=== PATIENT | female | born 1950 | race Caucasian/White ===

== ENCOUNTER → 2016-08-13 | Outpatient (CLI) | payer MEDICARE ==
--- NOTE | 2016-08-14 07:05 | US ---
EXAMINATION TYPE: US kidneys/renal and bladder DATE OF EXAM: 08/13/2016 3:48 PM COMPARISON: CT 12/16/2015 CLINICAL HISTORY: 65-year-old female N28.1 Renal Cyst Left. Cyst seen on left kidney on CT. TECHNIQUE: Multiple sonographic images of the kidneys and bladder were obtained. FINDINGS: Right Kidney: 9.8 x 5.0 x 4.3 cm without hydronephrosis. There is a 9 x 6 x 7 mm partially exophytic hypoechoic lesion at the mid to lower pole. Left Kidney: 11.0 x 6.0 x 5.0 cm without hydronephrosis. There is a 6.9 x 5.3 x 6.1 cm simple cyst wi thin the upper pole. No gross abnormality of the bladder.Bilateral Jets seen: Yes IMPRESSION: 1. No hydronephrosis. 2. A 6.9 cm simple cyst in the left upper pole. 3. A tiny 9 mm hypoechoic lesion mid to lower pole right kidney. This is very small and not well makayla acterized. A complicated cyst or early small solid lesion are both possible. Recommend follow-up [facility] ultrasound in 6 months to reassess.
== END | disposition home or self-care (01) ==
LOC: RADUSWWP 15:32
PROVIDERS: ATTEND Family Medicine
DX: N28.1 Cyst of kidney, acquired (principal)
CPT/HCPCS: 76770

== ENCOUNTER 2016-10-04 23:19 | Inpatient (IN) | payer MEDICARE ==
[2016-10-04] MEDS ORDERED: IPRATROPIUM-ALBUTEROL 3 ML NEB INHALATION STA (23:35)
[2016-10-04] MEDS ORDERED: SODIUM CHLORIDE 0.9% 500 ML IV STA (23:35)
--- NOTE | 2016-10-04 23:41 | ED ---
General Adult HPI - General Chief complaint: Shortness of Breath Stated complaint: sob Time Seen by Provider: 10/04/16 23:29 Source: patient, RN notes reviewed, old records reviewed Mode of arrival: wheelchair Limitations: no limitations - History of Present Illness Initial comments: This is a 65-year-old female earlier today for evaluation. She presents for evaluation of shortness of breath and dyspnea. Getting a deep breath and chest tightness. Patient has history of smoking no history of asthma is mild history of heart disease. No history of heart failure. Possible episodic fever, 2 days worsening symptoms. Patient doesn't recent travel history to [facility] last month. She does have increased cough and congestion. No known sick contacts - Related Data Home Medications Medication Instructions Recorded Confirmed Levothyroxine Sodium [Synthroid] 175 mcg PO DAILY 08/15/14 10/05/16 Lisinopril-Hctz 20-25 mg 1 tab PO DAILY 08/15/14 10/05/16 [Zestoretic 20-25] Multivit-Min/FA/Lycopene/Lut 1 tab PO DAILY 08/15/14 10/05/16 [Centrum Silver Tablet] amLODIPine BESYLATE [Amlodipine 10 mg PO DAILY 08/15/14 10/05/16 Besylate] Albuterol Inhaler [Ventolin Hfa 1 puff INHALATION RT-Q6H PRN 12/16/15 10/05/16 Inhaler] Azelastine HCl [Astepro] 1 spray EA NOSTRIL BID PRN 12/16/15 10/05/16 Etodolac [Lodine] 400 mg PO DAILY 10/05/16 10/05/16 Gabapentin [Neurontin] 900 mg PO TID 10/05/16 10/05/16 Metoprolol Succinate (ER) [Toprol 50 mg PO DAILY 10/05/16 10/05/16 Xl] tiZANidine HCL [Zanaflex] 4 mg PO HS 10/05/16 10/05/16 Previous Rx's Medication Instructions Recorded Pantoprazole Sodium [Protonix] 40 mg PO DAILY #30 tablet. 12/18/15 Allergies Allergy/AdvReac Type Severity Reaction Status Date / Time adhesive Allergy Rash/Hives Verified 10/04/16 23:27 Penicillins Allergy Rash/Hives Verified 10/04/16 23:27 Tetracyclines Allergy Rash/Hives Verified 10/04/16 23:27 Review of Systems ROS Statement: Those systems with pertinent positive or pertinent negative responses have been documented in the HPI. ROS Other: All systems not noted in ROS Statement are negative. 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 Past Anesthesia/Blood Transfusion Reactions: No Reported Reaction Past Psychological History: No Psychological Hx Reported Smoking Status: Former smoker Past Alcohol Use History: None Reported Past Drug Use History: None Reported - Past Family History Father History Unknown: Yes Family Medical History: Cancer, Myocardial Infarction ([place]) Mother History Unknown: Yes Family Medical History: Hypertension General Exam Limitations: no limitations General appearance: alert, in no apparent distress Head exam: Present: atraumatic, normocephalic, normal inspection Eye exam: Present: normal appearance, PERRL, EOMI. Absent: scleral icterus, conjunctival injection, periorbital swelling ENT exam: Present: normal exam, mucous membranes moist Neck exam: Present: normal inspection. Absent: tenderness, meningismus, lymphadenopathy Respiratory exam: Present: normal lung sounds bilaterally. Absent: respiratory distress, wheezes, rales, rhonchi, stridor Cardiovascular Exam: Present: normal rhythm, tachycardia, normal heart sounds. Absent: systolic murmur, diastolic murmur, rubs, gallop, clicks GI/Abdominal exam: Present: soft, normal bowel sounds. Absent: distended, tenderness, guarding, rebound, rigid Extremities exam: Present: normal inspection, full ROM, normal capillary refill. Absent: tenderness, pedal edema, joint swelling, calf tenderness Back exam: Present: normal inspection Neurological exam: Present: alert, oriented X3, CN II-XII intact Psychiatric exam: Present: normal affect, normal mood Skin exam: Present: warm, dry, intact, normal color. Absent: rash Course Vital Signs 10/04/16 10/04/16 10/05/16 23:22 23:47 00:03 Temperature 99.1 F Pulse Rate 102 H 90 96 Respiratory 22 Rate Blood Pressure 152/81 O2 Sat by Pulse 96 Oximetry 10/05/16 10/05/16 02:41 02:54 Temperature 100.5 F H Pulse Rate 89 80 Respiratory 16 18 Rate Blood Pressure 154/79 O2 Sat by Pulse 94 L 100 Oximetry - Reevaluation(s) Reevaluation #1: Patient is feeling much better with symptomatic management EKG Findings - EKG Comments: EKG Findings:: EKG shows no/90, MA 140, QRS 80, QTC 4:30 Medical Decision Making - Medical Decision Making 58 female here with shortness of breath, chest tightness, CK chest shows maybe mass, but no PE. Chest x-ray is positive for pneumonia, patient will be admitted for IV antibiotics, pain control and further evaluation - Lab Data Result diagrams: 10/06/16 07:34 10/06/16 07:34 Lab Results 10/04/16 10/04/16 10/04/16 Range/Units 23:35 23:35 23:35 WBC 14.6 H (3.8-10.6) k/uL RBC 4.72 (3.80-5.40) m/uL Hgb 14.4 (11.4-16.0) gm/dL Hct 42.2 (34.0-46.0) % MCV 89.4 (80.0-100.0) fL MCH 30.5 (25.0-35.0) pg MCHC 34.1 (31.0-37.0) g/dL RDW 12.3 (11.5-15.5) % Plt Count 364 (150-450) k/uL Neutrophils % 79 % Lymphocytes % 13 % Monocytes % 6 % Eosinophils % 1 % Basophils % 0 % Neutrophils # 11.5 H (1.3-7.7) k/uL Lymphocytes # 1.8 (1.0-4.8) k/uL Monocytes # 0.9 (0-1.0) k/uL Eosinophils # 0.2 (0-0.7) k/uL Basophils # 0.1 (0-0.2) k/uL PT (9.0-12.0) sec INR (<1.1) APTT (22.0-30.0) sec D-Dimer (<0.60) mg/L FEU Sodium 136 L (137-145) mmol/L Potassium 3.5 (3.5-5.1) mmol/L Chloride 95 L (98-107) mmol/L Carbon Dioxide 26 (22-30) mmol/L Anion Gap 15 mmol/L BUN 18 H (7-17) mg/dL Creatinine 0.90 (0.52-1.04) mg/dL Est GFR (MDRD) Af Amer >60 (>60 ml/min/1.73 sqM) Est GFR (MDRD) Non-Af >60 (>60 ml/min/1.73 sqM) Glucose 145 H (74-99) mg/dL Calcium 9.7 (8.4-10.2) mg/dL Magnesium 1.9 (1.6-2.3) mg/dL Total Bilirubin 0.9 (0.2-1.3) mg/dL AST 41 H (14-36) U/L ALT 58 H (9-52) U/L Alkaline Phosphatase 227 H (38-126) U/L Total Creatine Kinase 109 (30-135) U/L CK-MB (CK-2) 1.0 (0.0-2.4) ng/mL CK-MB (CK-2) Rel Index 0.9 Troponin I <0.012 (0.000-0.034) ng/mL NT-Pro-B Natriuret Pep pg/mL Total Protein 6.9 (6.3-8.2) g/dL Albumin 3.8 (3.5-5.0) g/dL 10/04/16 10/04/16 Range/Units 23:35 23:35 WBC (3.8-10.6) k/uL RBC (3.80-5.40) m/uL Hgb (11.4-16.0) gm/dL Hct (34.0-46.0) % MCV (80.0-100.0) fL MCH (25.0-35.0) pg MCHC (31.0-37.0) g/dL RDW (11.5-15.5) % Plt Count (150-450) k/uL Neutrophils % % Lymphocytes % % Monocytes % % Eosinophils % % Basophils % % Neutrophils # (1.3-7.7) k/uL Lymphocytes # (1.0-4.8) k/uL Monocytes # (0-1.0) k/uL Eosinophils # (0-0.7) k/uL Basophils # (0-0.2) k/uL PT 11.3 (9.0-12.0) sec INR 1.1 (<1.1) APTT 25.3 (22.0-30.0) sec D-Dimer 1.57 H (<0.60) mg/L FEU Sodium (137-145) mmol/L Potassium (3.5-5.1) mmol/L Chloride (98-107) mmol/L Carbon Dioxide (22-30) mmol/L Anion Gap mmol/L BUN (7-17) mg/dL Creatinine (0.52-1.04) mg/dL Est GFR (MDRD) Af Amer (>60 ml/min/1.73 sqM) Est GFR (MDRD) Non-Af (>60 ml/min/1.73 sqM) Glucose (74-99) mg/dL Calcium (8.4-10.2) mg/dL Magnesium (1.6-2.3) mg/dL Total Bilirubin (0.2-1.3) mg/dL AST (14-36) U/L ALT (9-52) U/L Alkaline Phosphatase (38-126) U/L Total Creatine Kinase (30-135) U/L CK-MB (CK-2) (0.0-2.4) ng/mL CK-MB (CK-2) Rel Index Troponin I (0.000-0.034) ng/mL NT-Pro-B Natriuret Pep 87 pg/mL Total Protein (6.3-8.2) g/dL Albumin (3.5-5.0) g/dL - Radiology Data Radiology results: report reviewed (Chest x-ray is positive for pneumonia, CT is negative for PE), image reviewed Disposition Clinical Impression: Community acquired pneumonia Disposition: ADMITTED IP TO THIS [facility] Condition: Fair
[2016-10-04] MEDS: SODIUM CHLORIDE 0.9% 1,000 ML IV STA (23:45)
[2016-10-04 23:59] LABS: Basophils # (A) 0.1 k/uL (0-0.2); Basophils % (A) 0 %; CH 30.1; CHCM 33.8; Eosinophils # (A) 0.2 k/uL (0-0.7); Eosinophils % (A) 1 %; HCT 42.2 % (34.0-46.0); HDW 2.34; HGB 14.4 gm/dL (11.4-16.0); Luc # (Auto) 0.15; Luc % (Auto) 1; Lymphocytes # (A) 1.8 k/uL (1.0-4.8); Lymphocytes % (A) 13 %; MCH 30.5 pg (25.0-35.0); MCHC 34.1 g/dL (31.0-37.0); MCV 89.4 fL (80.0-100.0); Mean Platelet Volume 7.4; Monocytes # (A) 0.9 k/uL (0-1.0); Monocytes % (A) 6 %; Neutrophils # (A) 11.5 k/uL (1.3-7.7); Neutrophils % (A) 79 %; RBC 4.72 m/uL (3.80-5.40); RDW 12.3 % (11.5-15.5); WBC 14.6 k/uL (3.8-10.6)
[2016-10-05 00:05] LABS: ALT 58 U/L (9-52); AST 41 U/L (14-36); Alkaline Phosphatase 227 U/L (38-126); Anion Gap 15 mmol/L; Blood Urea Nitrogen 18 mg/dL (7-17); Calcium 9.7 mg/dL (8.4-10.2); Carbon Dioxide 26 mmol/L (22-30); Chloride 95 mmol/L (98-107); Glucose 145 mg/dL (74-99); Magnesium 1.9 mg/dL (1.6-2.3); Non-African American GFR(MDRD) >60 (>60 ml/min/1.73 sqM); Potassium 3.5 mmol/L (3.5-5.1); Sodium 136 mmol/L (137-145); Total Bilirubin 0.9 mg/dL (0.2-1.3); Total Protein 6.9 g/dL (6.3-8.2)
[2016-10-05 00:09] LABS: Partial Thromboplastin Time 25.3 sec (22.0-30.0)
[2016-10-05 00:12] LABS: INR 1.1 (<1.1); Prothrombin Time 11.3 sec (9.0-12.0)
[2016-10-05 00:21] LABS: Creatine Kinase 109 U/L (30-135)
[2016-10-05 00:35] LABS: Troponin I <0.012 ng/mL (0.000-0.034)
--- NOTE | 2016-10-05 00:38 | XR ---
History: Reason: difficulty breathing Exam: XR CXR 2 VIEWS Comparison: 12/16/2015 FINDINGS: Patchy airspace opacity at the left base and lingula with silhouetting of the left heart border. Mild area of atelectasis suggested at the right base. No evidence of pleural effusion. Status post cholecystectomy. IMPRESSION: Patchy airspace opacity at the left base and lingula with silhouetting of the left heart border may represent pneumonia, clinically correlate and follow-up to resolution. Mild area of atelectasis suggested at the right base.
[2016-10-05] MEDS ORDERED: RX INFO: IV CONTRAST WAS GIVEN 1 EACH MISC MISCELLANE PRN (01:17)
[2016-10-05] MEDS ORDERED: LEVOFLOXACIN 750MG-D5W PMX 750 MG in DEXTROSE/WATER 1 150ML.BAG IVPB STA (01:19)
[2016-10-05] MEDS ORDERED: KETOROLAC 30 MG/ML 1 ML VIAL IVP STA (02:16)
[2016-10-05] MEDS ORDERED: ACETAMINOPHEN IV (For NPO) 1,000 MG in EMPTY BAG 1 BAG IVPB STA (02:16)
[2016-10-05] MEDS ORDERED: MORPHINE SULFATE 4 MG/ML SYRINGE IVP STA (02:16)
--- NOTE | 2016-10-05 02:25 | CT ---
EXAM: CT Angiography Chest With Intravenous Contrast CLINICAL HISTORY: Reason: Pain TECHNIQUE: Axial computed tomographic angiography images of the chest with intravenous contrast using pulmonary embolism protocol. CTDI is 11.5 mGy and DLP is 413.6 mGy-cm. This CT exam was performed using one or more of the following dose reduction techniques: automated exposure control, adjustment of the mA and/or kV according to patient size, and/or use of iterative reconstruction technique. MIP reconstructed images were created and reviewed. COMPARISON: CXR 10/05/16 and 12/16/15. FINDINGS: Pulmonary arteries: There is limited filling of the pulmonary arterial system which does preclude complete evaluation for partial embolus. I see no evidence for central pulmonary embolus or evidence for right heart strain. Aorta: No acute findings. No thoracic aortic aneurysm. Lungs: Rounded soft tissue attenuation mass within the left lower lobe likely involvement of the adjacent pleura. This measures 5.9 x 4.7 x 3.9 cm. Smaller rounded opacities are also noted within the right lower lobe within the superior segment measuring up to 13.5 cm. Diffuse centrilobular emphysema. Some ground-glass opacity seen within the lingula. Interstitial thickening is also seen within the left lower lobe, cannot exclude lymphangitic spread of tumor. Pleural space: Unremarkable. No significant effusion. No pneumothorax. Heart: Unremarkable. No cardiomegaly. No significant pericardial effusion. No evidence of RV dysfunction. Bones/joints: No acute fracture. No dislocation. Degenerative disc disease. Soft tissues: Unremarkable. Lymph nodes: Calcified lymph nodes identified indicating sequela from old granulomatous disease. Mildly prominent left hilar lymph nodes are seen measuring up to 1.6 cm. Abdomen: Cholecystectomy. Small hiatal hernia. Left renal 6.1 cm cyst. Diverticulosis. IMPRESSION: 1. Very limited evaluation of the pulmonary arterial system due to limited contrast bolus at time of exam. I see no evidence for central embolus or right heart strain. 2. Left lower lobe pulmonary mass which may involve the adjacent pleura and possible lymphangitic spread. Given small satellite nodules, concern is for malignancy.
[2016-10-05] MEDS ORDERED: PNEUMONIA PROTOCOL UTILIZED 1 EACH MISC PO PRN (02:41)
[2016-10-05] MEDS: MORPHINE SULFATE 4 MG/ML SYRINGE IVP PRN ×2 (05:23→09:58)
[2016-10-05] MEDS: SODIUM CHLORIDE 0.9% 1,000 ML IV STA (05:27)
[2016-10-05] MEDS: SODIUM CHLORIDE 0.9% 1,000 ML IV SCH ×2 (05:27→13:18)
[2016-10-05] MEDS: IPRATROPIUM-ALBUTEROL 3 ML NEB INHALATION SCH ×4 (07:17→20:48)
[2016-10-05] MEDS: ENOXAPARIN 40 MG/0.4 ML SYRINGE SQ SCH (07:50)
[2016-10-05] MEDS ORDERED: ONDANSETRON 4 MG/2 ML VIAL IVP PRN (12:17)
[2016-10-05] MEDS: HYDROcodone/APAP 5-325MG 1 EACH TAB PO PRN ×2 (12:32→17:45)
[2016-10-05] MEDS: KETOROLAC 30 MG/ML 1 ML VIAL IVP PRN ×2 (12:33→17:44)
[2016-10-05] MEDS: HYDROmorphone 1 MG/ML 1 ML SYRINGE IVP PRN ×4 (12:34→20:45)
[2016-10-05] MEDS: PANTOPRAZOLE 40 MG/10 ML VIAL IVP SCH ×2 (13:18→20:47)
[2016-10-05] MEDS ORDERED: ALPRAZolam 0.25 MG TAB PO PRN (17:02)
[2016-10-05] MEDS ORDERED: TEMAZEPAM 15 MG CAP PO PRN (17:02)
[2016-10-05] MEDS ORDERED: AZELASTINE 137MCG/SPRAY EA NOSTRIL PRN (17:03)
[2016-10-05] MEDS: GABAPENTIN 300 MG CAP PO SCH (20:47)
[2016-10-05] MEDS: tiZANidine 4 MG TAB PO SCH (20:47)
[2016-10-05] MEDS: SYMBICORT 160-4.5 MCG INHALER INHALATION SCH (20:48)
[2016-10-06] MEDS ORDERED: HYDROcodone/APAP 5-325MG 1 EACH TAB ONE (02:00)
[2016-10-06] MEDS ORDERED: HYDROmorphone 1 MG/ML 1 ML SYRINGE ONE (02:00)
[2016-10-06] MEDS ORDERED: KETOROLAC 30 MG/ML 1 ML VIAL ONE (02:00)
[2016-10-06] MEDS ORDERED: LEVOFLOXACIN 750MG-D5W PMX 750 MG in DEXTROSE/WATER 1 150ML.BAG IVPB SCH (02:42)
[2016-10-06] MEDS: LEVOTHYROXINE 88 MCG TAB PO SCH (05:52)
[2016-10-06] MEDS: HYDROmorphone 1 MG/ML 1 ML SYRINGE IVP PRN ×2 (05:57→09:04)
[2016-10-06] MEDS: SODIUM CHLORIDE 0.9% 1,000 ML IV SCH (05:58)
[2016-10-06] MEDS: HYDROcodone/APAP 5-325MG 1 EACH TAB PO PRN (07:35)
[2016-10-06] MEDS: KETOROLAC 30 MG/ML 1 ML VIAL IVP PRN (07:37)
[2016-10-06 08:02] LABS: Basophils % (A) 0 %; CH 29.6; CHCM 32.6; Eosinophils # (A) 0.2 k/uL (0-0.7); Eosinophils % (A) 2 %; HCT 36.6 % (34.0-46.0); HDW 2.31; HGB 12.4 gm/dL (11.4-16.0); Luc # (Auto) 0.08; Luc % (Auto) 1; Lymphocytes # (A) 1.5 k/uL (1.0-4.8); Lymphocytes % (A) 15 %; MCH 30.8 pg (25.0-35.0); MCHC 33.8 g/dL (31.0-37.0); MCV 91.1 fL (80.0-100.0); Mean Platelet Volume 7.2; Monocytes # (A) 0.6 k/uL (0-1.0); Monocytes % (A) 6 %; Neutrophils # (A) 7.9 k/uL (1.3-7.7); Neutrophils % (A) 77 %; RBC 4.02 m/uL (3.80-5.40); RDW 12.3 % (11.5-15.5); WBC 10.3 k/uL (3.8-10.6); WBC (Perox) 10.56
[2016-10-06 08:13] LABS: ALT 46 U/L (9-52); AST 36 U/L (14-36); Alkaline Phosphatase 162 U/L (38-126); Anion Gap 10 mmol/L; Blood Urea Nitrogen 8 mg/dL (7-17); Calcium 8.9 mg/dL (8.4-10.2); Carbon Dioxide 28 mmol/L (22-30); Chloride 101 mmol/L (98-107); Glucose 82 mg/dL (74-99); Non-African American GFR(MDRD) >60 (>60 ml/min/1.73 sqM); Potassium 3.7 mmol/L (3.5-5.1); Sodium 139 mmol/L (137-145); Total Bilirubin 0.6 mg/dL (0.2-1.3)
[2016-10-06] MEDS: SYMBICORT 160-4.5 MCG INHALER INHALATION SCH ×2 (08:56→19:48)
[2016-10-06] MEDS: IPRATROPIUM-ALBUTEROL 3 ML NEB INHALATION SCH ×4 (08:56→19:49)
[2016-10-06] MEDS: PANTOPRAZOLE 40 MG/10 ML VIAL IVP SCH (09:18)
[2016-10-06] MEDS: ENOXAPARIN 40 MG/0.4 ML SYRINGE SQ SCH (09:19)
[2016-10-06] MEDS: GABAPENTIN 300 MG CAP PO SCH ×3 (09:19→21:14)
[2016-10-06] MEDS: METOPROLOL SUCCINATE (ER) 50 MG TAB.ER.24H PO SCH (09:19)
[2016-10-06] MEDS: amLODIPine 10 MG TAB PO SCH (09:19)
[2016-10-06] MEDS: LISINOPRIL-HCTZ 20-25 MG 1 EACH TAB PO SCH (09:19)
--- NOTE | 2016-10-06 09:25 | XR ---
EXAMINATION TYPE: XR chest 2V DATE OF EXAM: 10/06/2016 COMPARISON: 10/05/2016 HISTORY: 66-year-old female follow-up pneumonia TECHNIQUE: Frontal and lateral views FINDINGS: The cardiomediastinal silhouette, aorta, and pulmonary vasculature are within normal limits. Left low er lobe consolidation persists having improved minimally from 10/05/2016. No pleural effusion. IMPRESSION: Stable to minimally improved left lower lobe pneumonia.
[2016-10-06 12:08] VITALS: BMI 30.7
[2016-10-06] MEDS: PANTOPRAZOLE 40 MG TABLET PO SCH (15:33)
[2016-10-06] MEDS: MULTIVITAMINS, THERA 1 EACH TAB PO SCH (15:33)
--- NOTE | 2016-10-06 18:38 | HP ---
CHIEF COMPLAINT: Shortness of breath and cough. HISTORY OF PRESENT ILLNESS: This 65 year old woman with a past medical history of multiple medical problems including history of hypertension, hypothyroidism, history of Ava's disease, history of cholecystectomy being followed by Dr. Valdo Estrada in the outpatient setting was not feeling well over the past several days. The patient presented with shortness of breath and cough. The patient also had left sided chest pain. The patient came to [facility] and was found to have evidence of left sided pneumonia, mass lesion suspected. The patient was admitted for further evaluation and treatment. Of note, the patient did have CT scan screened CT about three years ago without any abnormality. There is no history of fever, rigors or chills. No history of headache, loss of consciousness or seizures. PAST MEDICAL HISTORY: History of hypertension, hypothyroidism, thyroid nodule, Ava's disease. Medications prior to admission include home medications are: 2. Amlodipine 10 mg daily. 3. Protonix 40 mg daily. 4. Multivitamins one daily. 5. Toprol XL 50 mg daily. 6. Zestoretic one tablet po daily. 7. Synthroid 175 mcg po daily. 8. Neurontin 900 mg po t.i.d. 9. Lodine 400 mg po daily. 11. Ventolin one puff q6h prn. ALLERGIES: ADHESIVES, PENICILLIN AND TETRACYCLINE. FAMILY HISTORY: History of hypertension. SOCIAL HISTORY: Previous history of smoking. No history of alcohol intake. REVIEW OF SYSTEMS: ENT: No diminished vision, no diminished hearing. CARDIOVASCULAR SYSTEM: No angina or palpitations. RESPIRATORY: No cough. GI: As mentioned earlier. : No dysuria or hematuria. ALLERGY/IMMUNOLOGY: No asthma or hayfever. MUSCULOSKELETAL: as mentioned earlier. HEMATOLOGY/ONCOLOGY: No history of anemia. ENDOCRINE: As mentioned earlier. CONSTITUTIONAL: As mentioned earlier. DERMATOLOGY: Negative. RHEUMATOLOGY: Negative. PSYCHIATRIC: As mentioned earlier. PHYSICAL EXAMINATION: Alert and oriented times three. Pulse 92. Blood pressure 136/77. Respirations 17. Temperature 98.6, pulse ox 97% on room air. HEENT: Conjunctivae normal. Oral mucosa moist. NECK: No jugular venous distention. No carotid bruit. No lymph node enlargement. CARDIOVASCULAR: S1, S2 muffled. RESPIRATORY: Breath sounds diminished at the bases. A few scattered rhonchi and crackles. ABDOMEN: Soft, nontender. LEGS: No edema, no swelling. NERVOUS SYSTEM: Higher functions as mentioned earlier. Moves all four limbs. No focal deficits. LYMPHATICS: No lymph nodes palpable in the neck, axillae or groin. SKIN: No ulcer, rash or bleeding. Labs at this time shows WBC 14.6, BUN 1.57. Other labs are noted. ASSESSMENT: 1. Acute left lower lobe pneumonia with sepsis and acute hypoxic respiratory failure, present on admission, possibly gram negative. 2. Rule out mass lesion and malignancy. 3. Increased WBC. 4. Increased D. dimer. 5. Hypernatremia. 6. Increased AST/ALT. 7. History of hypertension. 8. History of breast surgery. 9. Degenerative joint disease. 10. Remote history of nicotine dependence. RECOMMENDATIONS AND DISCUSSION: In this 65 year old woman who presented with multiple medical problems, we will continue the current medications, continue symptomatic treatment, we will monitor the patient closely, intensive pain management. Broad spectrum IV antibiotics. I would also recommend bronchodilators also. The overall prognosis is guarded because of multiple complex medical issues. Further recommendations to follow. See orders for further details. Dr. Chance will be consulted for further evaluation including possible bronchoscopy. BERONICA
[2016-10-06] MEDS: tiZANidine 4 MG TAB PO SCH (21:15)
[2016-10-07] MEDS: LEVOTHYROXINE 88 MCG TAB PO SCH (06:00)
[2016-10-07] MEDS: SODIUM CHLORIDE 0.9% 1,000 ML IV SCH (06:27)
[2016-10-07 07:42] LABS: Basophils % (A) 0 %; CH 30.1; CHCM 33.7; Eosinophils # (A) 0.2 k/uL (0-0.7); Eosinophils % (A) 1 %; HDW 2.22; HGB 12.2 gm/dL (11.4-16.0); Luc # (Auto) 0.12; Luc % (Auto) 1; Lymphocytes # (A) 2.2 k/uL (1.0-4.8); Lymphocytes % (A) 17 %; MCH 31.2 pg (25.0-35.0); MCHC 34.8 g/dL (31.0-37.0); MCV 89.6 fL (80.0-100.0); Mean Platelet Volume 7.4; Monocytes # (A) 0.7 k/uL (0-1.0); Monocytes % (A) 5 %; Neutrophils # (A) 9.7 k/uL (1.3-7.7); Neutrophils % (A) 76 %; RBC 3.91 m/uL (3.80-5.40); RDW 12.6 % (11.5-15.5); WBC 12.9 k/uL (3.8-10.6); WBC (Perox) 13.14
[2016-10-07] MEDS: SYMBICORT 160-4.5 MCG INHALER INHALATION SCH ×2 (08:04→19:16)
[2016-10-07] MEDS: IPRATROPIUM-ALBUTEROL 3 ML NEB INHALATION SCH ×4 (08:04→19:16)
[2016-10-07 08:05] LABS: ALT 52 U/L (9-52); AST 29 U/L (14-36); Alkaline Phosphatase 157 U/L (38-126); Anion Gap 12 mmol/L; Blood Urea Nitrogen 6 mg/dL (7-17); Calcium 8.6 mg/dL (8.4-10.2); Carbon Dioxide 25 mmol/L (22-30); Chloride 99 mmol/L (98-107); Glucose 121 mg/dL (74-99); Non-African American GFR(MDRD) >60 (>60 ml/min/1.73 sqM); Potassium 3.5 mmol/L (3.5-5.1); Sodium 136 mmol/L (137-145); Total Bilirubin 0.5 mg/dL (0.2-1.3); Total Protein 5.5 g/dL (6.3-8.2)
[2016-10-07] MEDS: LEVOFLOXACIN 750 MG TAB PO SCH (08:06)
[2016-10-07] MEDS: PANTOPRAZOLE 40 MG TABLET PO SCH ×2 (08:07→17:06)
[2016-10-07] MEDS: METOPROLOL SUCCINATE (ER) 50 MG TAB.ER.24H PO SCH (08:07)
[2016-10-07] MEDS: ENOXAPARIN 40 MG/0.4 ML SYRINGE SQ SCH (08:07)
[2016-10-07] MEDS: amLODIPine 10 MG TAB PO SCH (08:07)
[2016-10-07] MEDS: GABAPENTIN 300 MG CAP PO SCH ×3 (08:07→20:42)
[2016-10-07] MEDS: LISINOPRIL-HCTZ 20-25 MG 1 EACH TAB PO SCH (08:07)
--- NOTE | 2016-10-07 08:37 | CONS ---
A 65-year-old female who presented to the emergency department with complaints of shortness of breath and was told that she had pneumonia in the left lower lobe. The patient complained of shortness of breath. She had been getting short of breath for a couple of days prior to admission. She also had pleuritic type chest pain in the left chest. It was worse on deep breathing. The patient was coughing, producing some phlegm, not a lot. Was feeling better today when I saw her in the room. She had a couple of chest x-rays, which showed infiltrates in the left lower lobe. CAT scan was done to rule out PE. There was no evidence of central pulmonary embolism. The CT angiogram was limited by motion artifact, when in fact the lesion in the left lower lobe may in fact be a mass. She may need a bronchoscopy down the road. She is feeling better as I mentioned. She was a smoker in the past. Does not smoke currently. Her home medications include Synthroid, Zestoretic, Centrum vitamin, amlodipine , albuterol inhaler, Astepro, Ceftin and Protonix. Allergies include ADHESIVES, PENICILLIN and TETRACYCLINES. Medical history includes hypertension, hypothyroidism, environmental allergies, Ava's disease, DJD, sinusitis and lupus. Surgical history includes among other things bilateral cataract surgery, cervical polyp removal, balloon Sinuplasty, bilateral blepharoplasty, right breast cyst removal, cholecystectomy, bilateral knee replacement and multiple thyroid nodule biopsies. Social history is positive for previous tobacco use. Denies any alcohol or illicit drug use. Family history is positive for cancer, myocardial infarction and hypertension. Occupational history is noncontributory. REVIEW OF SYSTEMS: CONSTITUTIONAL: Negative. NEUROLOGIC: Negative. HEENT: Negative. CARDIOVASCULAR: Negative. PULMONARY: Chest congestion, cough, shortness of breath, pleuritic chest pain left chest. GI/: Negative. RHEUMATOLOGIC/IMMUNOLOGIC: Negative. ENDOCRINOLOGIC: Negative. Current vital signs include a temperature 98.5, heart rate 82, respiratory rate 18, blood pressure 145/66, mean 92, room air saturation 98%. Appears in no acute distress. HEENT examination is grossly unremarkable. Mucous membranes are moist. No oral lesions. NECK: Supple. Full range of motion. No adenopathy or thyromegaly. Neck veins are flat. Cardiovascular examination reveals regular rhythm and rate. S1 and S2 normal. No S3, S4 or murmur. Lungs reveal some bibasilar crackles. There is a few scattered rhonchi. No wheezes. ABDOMEN: Soft. Bowel sounds are heard. Extremities are intact. No cyanosis, clubbing or edema. SKIN: Without rash. Chest x-ray showed left lower lobe infiltrate. CT scan showed no evidence of PE , but possible mass left lower lobe. Labs are reviewed. CBC is normal. PT, INR, PTT normal. D-dimer was elevated at 1.57. Electrolytes look good. BUN and creatinine were normal. The rest of the labs look good. Microbiology is current pending or negative. Medications are reviewed. ASSESSMENT: 1. Pneumonia, left lower lobe. 2. Possible mass left lower lobe. 3. Possible underlying chronic obstructive pulmonary disease from previous tobacco use. 4. History of hypertension. 5. Hypothyroidism. 6. Ava's thyroiditis. 7. Bilateral cataracts. 8. Multiple orthopedic procedures. PLAN: The patient can be treated as an inpatient here with antibiotics for a couple of days. The updrafts and the Symbicort are appropriate. We will see the patient as an outpatient. We will likely schedule her for bronchoscopy.Would not want to do anything given her acute infiltrates and pneumonic process. Additional recommendations and suggestions are forthcoming. Prognosis is guarded. MTDD
--- NOTE | 2016-10-07 11:15 | PN ---
DATE OF SERVICE: 10/06/2016 This 66-year-old woman was admitted with COPD acute exacerbation as well as significant pneumonia on the left side, also had suspected mass lesion. The patient is being closely monitored. The patient is on IV antibiotics. Still has shortness of breath and cough and sputum. Dr. Alberto is following the patient closely. The patient is on IV antibiotics. PAST MEDICAL HISTORY: Reviewed. REVIEW OF SYSTEMS: CARDIOVASCULAR: No angina. RESPIRATORY: As mentioned. GI: As mentioned. : No dysuria. NERVOUS SYSTEM: No numbness or weakness. Current medications are reviewed and include: 1. [place] 5 mg q.6 p.r.n. 2. Xanax 0.5 t.i.d. 3. Norvasc. 4. Astepro. 5. Symbicort 160/4.5, 2 puffs b.i.d. 6. Lovenox 7. Neurontin. 8. Zestoretic. 9. Dilaudid. 10. Toradol. 11. Levaquin. 12. Synthroid. 13. Toprol XL. 14. Zofran. 15. Restoril. 16. Zanaflex. Doses are reviewed. PHYSICAL EXAMINATION: The patient is alert and oriented x3. Pulse 89, blood pressure 130/62, respirations 18, temperature 98.8, pulse ox 94% on 2-L. HEENT: Conjunctivae normal. NECK: No jugular venous distention. CARDIOVASCULAR: S1, S2 muffled. RESPIRATORY: Breath sounds diminished at the bases. Bilateral scattered rhonchi and expiratory wheezing and crackles heard. Breath sounds diminished in the left lower chest. ABDOMEN: Soft, nontender. No mass palpable. LEGS: No edema, no swelling. NERVOUS SYSTEM: Higher function as mentioned. Moves all four limbs. No focal motor sensory deficits. LYMPHATICS: No lymphadenopathy in the neck, axillae or groin. SKIN: No rash, ulcers or bleeding. LABS: WBC 10, hemoglobin 12.4, sodium 139. Alk phos 162, albumin 3. ASSESSMENT: 1. Chronic obstructive pulmonary disease acute exacerbation with left lower lobe pneumonia possibly Gram-negative. 2. Rule out lung malignancy. 3. Hyponatremia. 4. Increased WBC. 5. History of hypertension. RECOMMENDATIONS AND DISCUSSION: This 66-year-old woman who presented with multiple complex medical issues, will monitor the patient closely. Continue with the current [id number], continue with IV antibiotics. Continue with the intensive bronchodilators. Consult Dr. Alberto. Closely monitor. Further recommendations to follow. Guarded prognosis. MTDD
[2016-10-07] MEDS: MULTIVITAMINS, THERA 1 EACH TAB PO SCH (11:42)
--- NOTE | 2016-10-07 16:36 | PN ---
This is a 66-year-old female whom I saw yesterday in consultation for pneumonia , left lower lobe. Her chest x-rays actually look like infiltrate, left lower lobe. CT scan suggested a possible mass in the left lower lobe. I told the patient today that we would treat her with antibiotics, bronchodilators and the like, and that we would see her in the office for followup. She will need to have followup on that area in the left lower lobe. It may clear completely, in which case we will not need to do anything more. If it does not, then electromagnetic navigational bronchoscopy would be in order. She likely has some underlying COPD, although her lung function has never been tested. She has a history of hypertension, hypothyroidism, Ava's thyroiditis, bilateral cataracts and multiple orthopedic procedures. She is feeling a bit better today. Less short of breath. Temperature 97.5, heart rate 80, respiratory rate 18. Blood pressure is 129/61, mean 83. Her room-air saturation is 94%. Two-liter saturation is 96%. She appears in no acute distress. HEENT examination is grossly unremarkable. Mucous membranes are moist. No oral lesions. NECK: Supple. Full range of motion. No adenopathy, thyromegaly or neck vein distention. Cardiovascular examination reveals regular rhythm and rate. S1, S2 normal. No S3 , S4 or murmur. Lungs reveal some bibasilar rhonchi and some crackles, more left-sided than right-sided. Breath sounds are diminished on the left base. ABDOMEN: Soft. Bowel sounds are heard. No masses. Extremities are intact. No cyanosis, clubbing or edema. SKIN: Without rash. Neurologic examination is brief but non-focal. Labs are reviewed. White count 12.9. Hemoglobin, hematocrit and platelet count all normal. Sodium 136. Potassium, chloride, CO2 all normal. BUN and creatinine were 6 and 0.8. Anion gap is normal at 12. The rest of the labs look okay. No additional x-rays have been done other than the ones that we looked at yesterday. They included 2 chest x-rays and a CT scan. Microbiology, including blood, urine and sputum, are all negative at this point. Medications are reviewed. ASSESSMENT: 1. Pneumonia, left lower lobe, with possible mass, left lower lobe. 2. Possible/probable underlying chronic obstructive pulmonary disease from previous heavy tobacco use. 3. History of essential hypertension. 4. Hypothyroidism. 5. Ava's thyroiditis. 6. Bilateral cataracts. 7. Multiple orthopedic procedures. PLAN: The patient will continue with antibiotics and updrafts. We will see her as an outpatient. Should the x-rays not show improvement, bronchoscopy, probably an electromagnetic navigational bronchoscopy, will be in order to make a diagnosis of what appears to be a mass in the left lower lobe on CT scan. I did apprise the patient today of those findings. She understands. BERONICA
[2016-10-07] MEDS: tiZANidine 4 MG TAB PO SCH ×2 (20:42→22:16)
[2016-10-07 21:18] VITALS: RESP 16
[2016-10-08] MEDS: LEVOTHYROXINE 88 MCG TAB PO SCH (06:16)
[2016-10-08] MEDS: LEVOFLOXACIN 750 MG TAB PO SCH (06:16)
[2016-10-08 07:59] LABS: Basophils % (A) 0 %; CH 29.7; Eosinophils # (A) 0.2 k/uL (0-0.7); Eosinophils % (A) 2 %; HCT 37.4 % (34.0-46.0); HDW 2.29; HGB 12.7 gm/dL (11.4-16.0); Luc # (Auto) 0.11; Luc % (Auto) 1; Lymphocytes # (A) 1.9 k/uL (1.0-4.8); Lymphocytes % (A) 20 %; MCH 30.5 pg (25.0-35.0); MCHC 33.9 g/dL (31.0-37.0); MCV 90.2 fL (80.0-100.0); Mean Platelet Volume 7.5; Monocytes # (A) 0.5 k/uL (0-1.0); Monocytes % (A) 6 %; Neutrophils # (A) 6.9 k/uL (1.3-7.7); Neutrophils % (A) 71 %; RBC 4.15 m/uL (3.80-5.40); RDW 12.4 % (11.5-15.5); WBC 9.6 k/uL (3.8-10.6); WBC (Perox) 10.32
[2016-10-08 08:08] LABS: ALT 55 U/L (9-52); AST 45 U/L (14-36); Alkaline Phosphatase 164 U/L (38-126); Anion Gap 11 mmol/L; Blood Urea Nitrogen 6 mg/dL (7-17); Carbon Dioxide 28 mmol/L (22-30); Chloride 104 mmol/L (98-107); Glucose 85 mg/dL (74-99); Non-African American GFR(MDRD) >60 (>60 ml/min/1.73 sqM); Potassium 3.9 mmol/L (3.5-5.1); Sodium 143 mmol/L (137-145); Total Bilirubin 0.4 mg/dL (0.2-1.3)
[2016-10-08] MEDS: SYMBICORT 160-4.5 MCG INHALER INHALATION SCH (08:11)
[2016-10-08] MEDS: IPRATROPIUM-ALBUTEROL 3 ML NEB INHALATION SCH ×3 (08:11→15:19)
[2016-10-08 08:22] VITALS: BP 147/77; TEMP 98.2
[2016-10-08] MEDS: amLODIPine 10 MG TAB PO SCH (08:28)
[2016-10-08] MEDS: LISINOPRIL-HCTZ 20-25 MG 1 EACH TAB PO SCH (08:28)
[2016-10-08] MEDS: ENOXAPARIN 40 MG/0.4 ML SYRINGE SQ SCH (08:28)
[2016-10-08] MEDS: GABAPENTIN 300 MG CAP PO SCH (08:28)
[2016-10-08] MEDS: PANTOPRAZOLE 40 MG TABLET PO SCH (08:28)
[2016-10-08] MEDS: METOPROLOL SUCCINATE (ER) 50 MG TAB.ER.24H PO SCH (08:28)
[2016-10-08] MEDS: SODIUM CHLORIDE 0.9% 1,000 ML IV SCH (08:31)
--- NOTE | 2016-10-08 08:48 | PN ---
DATE OF SERVICE: 10/07/2016 This 66-year-old woman was admitted with COPD and as well as left lung pneumonia , is being closely monitored. Patient had extensive travel history recently to [place] and [place] and agrees also. No chest pain, no palpitation, no fever. Dr. Alebrto is following the patient and recommended outpatient followup. On exam, pulse is 81, blood pressure 120/61, respirations 18, temperature is 97.4, pulse ox 94% on room air. HEENT: Conjunctivae normal. NECK; No jugular venous distension. CARDIOVASCULAR SYSTEM: S1, S2, muffled. RESPIRATORY: Breath sound diminished at the bases. A few scattered rhonchi. ABDOMEN: Soft. LEGS: No edema, no swelling. NERVOUS SYSTEM: No focal deficits. LABS: WBC is 12.9, sodium 136. ASSESSMENT: 1. Chronic obstructive pulmonary disease exacerbation with left lobe pneumonia , possibly gram negative. 2. Rule out lung malignancy. 3. Hyponatremia. 4. Increased WBC. 5. Hypertension. RECOMMENDATION: Recommend to continue with the current medication and symptomatic treatment, bronchodilators. Otherwise, closely follow with Dr. Alberto. Guarded prognosis. Further recommendations to follow. MTDD
--- NOTE | 2016-10-08 11:14 | P.PN ---
Subjective Progress note dated 10/08/2016 Female was admitted with a diagnosis of pneumonia. The pneumonia was in the left lower lobe. Chest x-rays look like pneumonia on computed tomography scan suggested the possibility of a mass. She is a smoker. Anyway the patient will have outpatient evaluation. She probably will need a PET scan and probably would benefit from a electromagnetic navigational bronchoscopy. She does have a history of underlying COPD she also has a history of hypertension hypothyroidism Ava's thyroiditis bilateral cataracts and multiple orthopedic procedures. Objective - Vital Signs Vital signs: Vital Signs Temp 98.2 F 10/08/16 07:00 Pulse 80 10/08/16 08:24 Resp 16 10/08/16 07:00 BP 147/77 10/08/16 07:00 Pulse Ox 94 L 10/08/16 07:00 Intake & Output 10/07/16 10/08/16 10/08/16 18:59 06:59 18:59 Intake Total 360 0 Balance 360 0 Intake: Intake, IV Titration 0 Amount Sodium Chloride 0.9% 1, 0 000 ml @ 20 mls/hr IV . Q24H [facility] Rx#:[id number] Oral 360 Other: Voiding Method Toilet Toilet Toilet # Voids 4 1 - Exam No acute distress, oriented 3. HEENT examination is grossly unremarkable. Mucous membranes are moist. No oral lesions. Neck supple. Full range of motion. No adenopathy or thyromegaly. Cardiovascular examination reveals regular rhythm rate. S1-S2 normal. There is no S3-S4 or murmur. Lungs reveal improved breath sounds. A few scattered rhonchi. Breath sounds are slightly diminished at the left base. No crackles. No wheezes. Abdomen soft bowel sounds are heard. No masses or tenderness. No cyanosis clubbing or edema. Extremities are intact. Skin without rash. Neurologic examination is brief but nonfocal. - Labs CBC & Chem 7: 10/08/16 07:02 10/08/16 07:02 Labs: Abnormal Lab Results - Last 24 Hours (Table) 10/08/16 Range/Units 07:02 BUN 6 L (7-17) mg/dL AST 45 H (14-36) U/L ALT 55 H (9-52) U/L Alkaline Phosphatase 164 H (38-126) U/L Total Protein 6.0 L (6.3-8.2) g/dL Albumin 3.0 L (3.5-5.0) g/dL Microbiology - Last 24 Hours (Table) 10/04/16 23:35 Blood Culture - Preliminary Blood No Growth after 72 hours 10/05/16 11:04 Gram Stain - Final Sputum Sputum Culture - Final Assessment and Plan (1) COPD exacerbation Status: Acute (2) Hypertension Status: Acute (3) Community acquired pneumonia Status: Acute (4) Ava's disease Status: Chronic Plan: Plan dated 10/08/2016 The patient will continue on her current medications. She could be discharged anytime the primary service she was that she's ready for discharge. Clinically she is doing much improved. She may have to go home on oxygen therapy initially. The patient will follow with me in the office. We likely will repeat a chest x-ray may be get a PET scan. Subsequently, she may need bronchoscopy we would likely due electromagnetic navigational bronchoscopy. Additional recommendations and suggestions are forthcoming. Time with Patient: Less than 30 (was done)
[2016-10-08] MEDS: MULTIVITAMINS, THERA 1 EACH TAB PO SCH (13:16)
[2016-10-08 15:33] VITALS: PULSE 80
--- NOTE | 2016-10-08 16:00 | P.DS ---
Providers Date of admission: 10/05/16 02:42 Expected date of discharge: 10/08/16 Attending physician: Ezequiel Izquierdo Consults: 10/05/16 17:01 Consult Physician Routine Consulting Provider: Jennifer Chance Consult Reason/Comments: pneumonia?? Do you want consulting provider notified?: Yes Primary care physician: [facility] Course: Final Diagnoses: (1) COPD exacerbation, Status: Acute (2) Hypertension Status: Acute (3) Community acquired pneumonia, possible gram-negative, rule out lung malignancy Status: Acute (4) Ava's disease Status: Chronic Hospital course this is a 66-year-old female admitted with left lower lobe pneumonia, possible left lower lobe pulmonary mass. Patient evaluated and treated by pulmonary with nebulized bronchodilators, antibiotics. Significant clinical improvement. Patient will follow-up with pulmonary for further outpatient workup including repeat chest x-ray, possible PET scan, potential bronchoscopy. Patient is being discharged home in a stable condition with guarded prognosis. The impression and plan of care has been dictated as directed as a scribe. : I performed a H&P examination of this patient and discussed the same with the dictator. I agree with the dictator's note. Any additional findings/opinions/ etc. will be noted. Patient Condition at Discharge: Stable Plan - Discharge Summary New Discharge Prescriptions: New Budesonide-Formot 160-4.5 Mcg [Symbicort 160-4.5 Mcg Inhaler] 2 puff INHALATION RT-BID #1 inh Levofloxacin [Levaquin] 750 mg PO 0700 #5 tab Continue Levothyroxine Sodium [Synthroid] 175 mcg PO DAILY amLODIPine BESYLATE [Amlodipine Besylate] 10 mg PO DAILY Lisinopril-Hctz 20-25 mg [Zestoretic 20-25] 1 tab PO DAILY Multivit-Min/FA/Lycopene/Lut [Centrum Silver Tablet] 1 tab PO DAILY Azelastine HCl [Astepro] 1 spray EA NOSTRIL BID PRN PRN Reason: Allergy Symptoms Albuterol Inhaler [Ventolin Hfa Inhaler] 1 puff INHALATION RT-Q6H PRN PRN Reason: Shortness Of Breath Pantoprazole Sodium [Protonix] 40 mg PO DAILY #30 tablet. Etodolac [Lodine] 400 mg PO DAILY Metoprolol Succinate (ER) [Toprol XL] 50 mg PO DAILY tiZANidine HCL [Zanaflex] 4 mg PO HS Gabapentin [Neurontin] 900 mg PO TID Discharge Medication List Levothyroxine Sodium [Synthroid] 175 mcg PO DAILY 08/15/14 [History] Lisinopril-Hctz 20-25 mg [Zestoretic 20-25] 1 tab PO DAILY 08/15/14 [History] Multivit-Min/FA/Lycopene/Lut [Centrum Silver Tablet] 1 tab PO DAILY 08/15/14 [ History] amLODIPine BESYLATE [Amlodipine Besylate] 10 mg PO DAILY 08/15/14 [History] Albuterol Inhaler [Ventolin Hfa Inhaler] 1 puff INHALATION RT-Q6H PRN 12/16/15 [ History] Azelastine HCl [Astepro] 1 spray EA NOSTRIL BID PRN 12/16/15 [History] Pantoprazole Sodium [Protonix] 40 mg PO DAILY #30 tablet. 12/18/15 [Rx] Etodolac [Lodine] 400 mg PO DAILY 10/05/16 [History] Gabapentin [Neurontin] 900 mg PO TID 10/05/16 [History] Metoprolol Succinate (ER) [Toprol XL] 50 mg PO DAILY 10/05/16 [History] tiZANidine HCL [Zanaflex] 4 mg PO HS 10/05/16 [History] Budesonide-Formot 160-4.5 Mcg [Symbicort 160-4.5 Mcg Inhaler] 2 puff INHALATION RT-BID #1 inh 10/08/16 [Rx] Levofloxacin [Levaquin] 750 mg PO 0700 #5 tab 10/08/16 [Rx] Follow up Appointment(s)/Referral(s): Lane Alberto DO [Doctor of Osteopathic Medicine] - 11/04/16 9:00 am (repeat CXR/pet scan/Bronschoscopy) Valdo Estrada DO [Primary Care Provider] - 10/15/16 2:00 pm Ambulatory/Diagnostic Orders: Complete Blood Count w/diff [LAB.AMB] Time Frame: 3 Days, Location: Determined By Patient Patient Instructions/Handouts: Levofloxacin (By mouth), Budesonide/Formoterol ( By breathing), COPD (Chronic Obstructive Pulmonary Disease) (DC), Hypertension ( GEN), Pneumonia (DC) Activity/Diet/Wound Care/Special Instructions: O2 sat on RA after mabulation pending: Discharge Disposition: HOME SELF-CARE
--- NOTE | 2016-10-09 11:21 | CDI ---
In responding to this query, please exercise your independent professional judgment. The [facility] Coding Staff and Clinical Documentation Specialists appreciate your assistance in clarifying documentation, maintaining compliance with coding guidelines, accurately documenting patients condition and capturing severity of illness. The fact that a question is asked does not imply that any particular answer is desired or expected. Communication forms are a method of clarifying documentation and are not made part of the Legal Health Record. Thank you in advance for your clarification. Last Revision, June 2016 Aarti Santoro [address] [place] [address] Documentation Clarification Form Date: 10/09/2016 11:11:00 AM From: Betzaida Montanez Admit Date: 10/05/2016 2:42:00 AM Patient Name: Juliette Christie Visit Number: [id number] Discharge Date: 10/08/16 Dr. Ezequiel Rutledge Sepsis is documented in the H&P but not in the discharge summary, Presented with pulse-102, respirations - 22, WBC - 14.6 and neutrophils - 11.5. No lactic acid. Blood cultures negative. Given IV Levofloxacin and Sodium chloride 0.9% 100 mls/hr. She also had probable gram negative pneumonia with AECOPD. In your professional opinion, please clarify if sepsis was ruled out or present: Sepsis, ruled out SIRS, without underlying infectious process Sepsis Unable to determine Other, please specify Present on Admission: Yes No * Identify the (suspected) organism * Link or clarify if there is associated (due to/with): - Organ failure - Shock SIRS Criteria: 2 or more of the following may indicate SIRS Temperature < 96.8F(36C) or > 101.0F (38C) Heart Rate > 90 bpm Respiratory Rate > 20 breaths/min or PaCO2 < 32 mmHg White Blood Cell Count > 12,000 or < 4,000 cells/mm3 or > 10% bands Lactate >2.0 mmol/L (>4.0 is equivalent to septic shock) Please document in your progress notes and discharge summary in order to capture severity of illness and risk of mortality. Include clinical findings that support your diagnosis. FYI: Press F11 to launch patient chart. If you have a question about this query, please contact Chaya Penny, Client Evaluator, Aarti Santoro at [phone] [place] 8am and 5pm. [facility]
--- NOTE | 2016-10-20 20:02 | DS ---
ADDENDUM: Sepsis ruled out. MTDD
== END 2016-10-08 15:40 | disposition home or self-care (01) | DRG 190 ==
LOC: EC 23:19 → 5MS5E 10-05 02:42
PROVIDERS: ADMIT Hospitalist; ATTEND Hospitalist
DX: J44.0 Chronic obstructive pulmonary disease with (acute) lower respiratory infection (principal); J15.6 Pneumonia due to other Gram-negative bacteria; J96.01 Acute respiratory failure with hypoxia; E87.1 Hypo-osmolality and hyponatremia; M32.9 Systemic lupus erythematosus, unspecified; J44.1 Chronic obstructive pulmonary disease with (acute) exacerbation; I10 Essential (primary) hypertension; M19.91 Primary osteoarthritis, unspecified site; E06.3 Autoimmune thyroiditis; Z79.899 Other long term (current) drug therapy; Z87.891 Personal history of nicotine dependence; Z88.1 Allergy status to other antibiotic agents; Z91.048 Other nonmedicinal substance allergy status; Z90.49 Acquired absence of other specified parts of digestive tract; Z96.653 Presence of artificial knee joint, bilateral; Z98.42 Cataract extraction status, left eye; Z98.41 Cataract extraction status, right eye; Z88.0 Allergy status to penicillin
CPT/HCPCS: 36415; 71020; 71275; 80053; 82550; 82553; 83735; 83880; 84484; 85025; 85379; 85610; 85730; 87040; 87070; 87086; 87205; 93005; 94640; 94760; 96361; 96365; 96366; 96367; 96375; 99285

== ENCOUNTER → 2016-10-15 | Outpatient (CLI) | payer MEDICARE ==
--- NOTE | 2016-10-15 15:07 | XR ---
EXAMINATION TYPE: XR chest 2V DATE OF EXAM: 10/15/2016 COMPARISON: Chest x-ray October 06, 2016. CTA chest 10 days ago. HISTORY: Pneumonia progress study TECHNIQUE: Frontal and lateral views of the chest are obtained. FINDINGS: There is background chronic emphysematous change with persistent left lower lobe infiltrate though improved from prior There is no new focal air space opacity, pleural effusion, or pneumothora x seen. The cardiac silhouette size is within normal limits with atherosclerotic thoracic aorta. T he osseous structures are intact. Cholecystectomy clips are noted. IMPRESSION: Improving but persistent left lower lobe infiltrate, no new infiltrate is seen. Follow-u p to complete resolution recommended.
== END | disposition home or self-care (01) ==
LOC: RADXRYALE 14:35
PROVIDERS: ATTEND Physician Assistant Medical
DX: R91.8 Other nonspecific abnormal finding of lung field (principal)
CPT/HCPCS: 71020

== ENCOUNTER → 2017-02-23 | Outpatient (CLI) | payer MEDICARE ==
--- NOTE | 2017-02-23 18:27 | US ---
EXAMINATION TYPE: US kidneys/renal and bladder DATE OF EXAM: 02/23/2017 COMPARISON: 08/13/2016 CLINICAL HISTORY: 66-year-old female N28.1 Kidney cyst. Technique: Multiple sonographic images of the kidneys and bladder are obtained. FINDINGS: Right Kidney: 9.9 x 5.6 x 5.0 cm without hydronephrosis. There is a 9 mm mid to lower pole hypoechoi c lesion. This previously measured 9 x 6 x 7 mm. This suggests a benign cyst possibly with some inter nal debris or artifact. A couple 4 mm calcifications are present at the midpole. Left Kidney: 9.4 x 7.3 x 5.1 cm without hydronephrosis. There is a dominant 7.6 cm simple cyst in the upper pole. This previously measured up to 6.9 cm. 2 mm nonobstructive calculus at the lower pole. No gross abnormality of the bladder. Both ureteral jets are visualized. Post Void Residual Volume: 4.1 mL, within normal limits. IMPRESSION: 1. Stable 9 mm hypoechoic, cortical lesion at the mid to lower pole right kidney. A benign cyst is avalos ggested either with some internal debris or artifact. 2. Dominant 7.6 cm upper pole left renal cyst slightly enlarged from 6.9 cm. 3. Small calcification suggested in the kidneys measuring up to 4 mm on the right.
== END | disposition home or self-care (01) ==
LOC: RADUSWWP 13:55
PROVIDERS: ATTEND Family Medicine
DX: N28.1 Cyst of kidney, acquired (principal); M32.10 Systemic lupus erythematosus, organ or system involvement unspecified
CPT/HCPCS: 76770

== ENCOUNTER → 2017-03-19 | Outpatient (CLI) | payer MEDICARE ==
--- NOTE | 2017-03-20 08:30 | XR ---
EXAMINATION TYPE: XR ankle complete LT DATE OF EXAM: 03/19/2017 COMPARISON: NONE HISTORY: Ankle and foot pain, Achilles tendon pain x2 days TECHNIQUE: Three-view left ankle FINDINGS: No acute fractures are evident. The ankle mortise is intact. Soft tissues are normal. Very tiny plantar calcaneal heel spur is present. IMPRESSION: 1. No acute osseous abnormality. 2. Tiny plantar calcaneal heel spur
== END | disposition home or self-care (01) ==
LOC: RADXRYALE 16:14
PROVIDERS: ATTEND Family Medicine
DX: M77.32 Calcaneal spur, left foot (principal); M25.572 Pain in left ankle and joints of left foot; M79.672 Pain in left foot

== ENCOUNTER 2017-10-12 07:22 | Day surgery (SDC) | payer MEDICARE ==
[2017-10-08 09:05] VITALS: BMI 32.3
[~2017-10-12 07:22] MED LIST: LACTATED RINGERS 1,000 ML IV SCH; LIDOCAINE 1% 20 ML VIAL (10MG/ML) FOR IV START INTRADERMA PRN
[2017-10-12 07:41] VITALS: RESP 16; TEMP 98
[2017-10-12] MEDS ORDERED: PROPOFOL 10 MG/ML 20 ML VIAL IV ONE (07:49)
[2017-10-12] MEDS ORDERED: LIDOCAINE 1% INJ 10MG/ML (20 ML MDV) ONE (07:49)
--- NOTE | 2017-10-12 08:30 | P.PCN ---
Date of Procedure: 10/12/17 Procedure(s) Performed: Procedures: 1. Esophagogastroduodenoscopy and biopsy. 2. Total colonoscopy. Preoperative diagnosis: Chronic reflux symptoms and history of polyps. Postoperative diagnosis: 1. Hiatal hernia with no obvious esophagitis or complicated reflux disease. 2. Mild gastritis and duodenitis. 3. Diverticulosis of the colon with no evidence of acute diverticulitis, strictures , polyps or cancer. Preparation: HalfLytely prep. Sedation: Was provided by anesthesia. Brief clinical history: The patient is a 67-year-old female with history of polyps. She also has chronic reflux symptoms and for the last 3 months she has been requiring twice a day therapy with frequent nocturnal breakthrough symptoms. She has no dysphagia, bleeding, weight loss or anemia. No change in bowel habits or abdominal pain. Her last colonoscopy was around 5 years ago and her last upper endoscopy may have been 7 or 10 years ago. Procedure: With the patient on her left lateral decubitus position and after informed consent and adequate sedation, I passed the Olympus-GIF 160 video upper endoscope through the cricopharyngeus down the esophagus. GE junction was around 36 cm from the incisors and there was a 2 cm sliding hiatal hernia but there was no evidence of acute esophagitis or Vega's esophagus. There appeared to be a short benign nonobstructing stricture limited to the level of the GE junction. The endoscope was then passed into the stomach which was insufflated with air and inspected in detail including the retroflex view in the cardia. Finally, the endoscope was passed through the pylorus into the duodenum. Pyloric channel did not show any ulcers. Duodenal bulb, post bulbar area and descending duodenum as well as the antrum showed mottling and erythema but no ulcers or bleeding. I obtained biopsies from the duodenum, antrum and esophagus then the endoscope was withdrawn and I then proceeded to do colonoscopy. Perianal area did not show any fissures or fistulas. There were no masses felt on digital rectal examination. The Olympus CFQ 160L video colonoscope was then inserted in the rectum in the usual fashion and advanced to the cecum. There were multiple diverticular orifices noted along the length of the bowel including the right colon and around the hepatic flexure with no evidence of acute diverticulitis or strictures. The mucosa appeared healthy. No polyps or tumors were seen. I retroflexed the endoscope in the rectum before the endoscope was withdrawn. The patient tolerated the procedure well. Plan: The patient was reassured. Discussed dietary measures. Will await biopsy results and make further adjustments based on her symptoms and biopsy results. I recommended repeat colonoscopy in 5 years because of the history of polyps. She will follow-up with you as planned.
[2017-10-12 08:50] VITALS: BP 129/84; PULSE 64
== END 2017-10-12 09:14 | disposition home or self-care (01) ==
LOC: ORWHC2ENDO 07:22
DX: Z12.11 Encounter for screening for malignant neoplasm of colon (principal); K29.50 Unspecified chronic gastritis without bleeding; K44.9 Diaphragmatic hernia without obstruction or gangrene; K21.0 Gastro-esophageal reflux disease with esophagitis; K29.80 Duodenitis without bleeding; K57.30 Diverticulosis of large intestine without perforation or abscess without bleeding; Z86.010 Personal history of colon polyps; I10 Essential (primary) hypertension; M19.90 Unspecified osteoarthritis, unspecified site; E06.3 Autoimmune thyroiditis; M32.9 Systemic lupus erythematosus, unspecified; Z87.891 Personal history of nicotine dependence; Z79.890 Hormone replacement therapy; Z79.1 Long term (current) use of non-steroidal anti-inflammatories (NSAID); Z79.899 Other long term (current) drug therapy; Z88.1 Allergy status to other antibiotic agents; Z88.0 Allergy status to penicillin; Z91.09 Other allergy status, other than to drugs and biological substances
CPT/HCPCS: 88305; 43239; J2001; J2704; G0105; 45378

== ENCOUNTER → 2017-12-03 | Outpatient (CLI) | payer MEDICARE ==
--- NOTE | 2017-12-03 13:32 | CTL ---
EXAMINATION TYPE: CT Low Dose Lung DATE OF EXAM ORDERED: 12/03/2017 HISTORY: 67-year-old female personal history of tobacco use. Lung cancer screening CT DLP: 78.[address] CTDI: 2.4 mGy Automated exposure control for dose reduction was used. SCREENING VISIT: Annual Follow-up COMPARISON: 01/02/2016 TECHNIQUE: Low dose computed tomography scan was performed through the chest at 1 mm thick sections a nd reconstructed images in the coronal/sagittal plane at 1 mm thick sections. Additional coronal MIP reconstruction performed. CT DIAGNOSTIC QUALITY: Satisfactory FINDINGS: Heart normal size without pericardial effusion. Ascending aorta mildly ectatic at 3.7 cm. 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 Conve ntional arch vessel branching anatomy. Calcified right hilar lymph nodes. Additional nonenlarged mediastinal lymph nodes. No thoracic lympha denopathy by CT size criteria. There is moderate centrilobular emphysema with mild diffuse bronchial wall thickening. Calcified gran uloma right upper lobe. 8 mm right lower lobe pulmonary nodule axial image 160. In retrospect, this was present on 01/02/2016. No suspicious pulmonary nodules or masses. Strandy atelectasis or scarring at the inferior lingular. No consolidation or pleural effusion. A moderate-sized hiatal hernia. Degenerative changes of the shoulders. No osseous destructive process. IMPRESSION: 1. LungRADS 2 - benign; an 8 mm right lower lobe pulmonary nodule is stable for 2 years. No new pulm onary nodule or mass. 2. COPD with moderate emphysema. 3. Prior granulomatous disease. 4. Moderate size hiatal hernia. RECOMMENDATION: 1. Continue with annual lung cancer screening CT. 2. Smoking cessation. FOLLOW UP CT CHEST RECOMMENDATION: [address] LUNG RAD: Lung-Rad 2 Benign Appearance or Behavior
== END | disposition home or self-care (01) ==
LOC: RADCTMAIN 09:18
PROVIDERS: ATTEND Internal Medicine Critical Care Medicine
DX: Z12.2 Encounter for screening for malignant neoplasm of respiratory organs (principal); R91.1 Solitary pulmonary nodule; J43.9 Emphysema, unspecified; Z87.891 Personal history of nicotine dependence

== ENCOUNTER → 2018-10-27 | Outpatient (CLI) | payer MEDICARE ==
--- NOTE | 2018-10-27 10:19 | BD ---
EXAMINATION TYPE: Axial Bone Density DATE OF EXAM: 10/27/2018 COMPARISON: NONE CLINICAL HISTORY: M85.80 Height: 5 FT 5 3/4 IN Weight: 202 FRAX RISK QUESTIONS: Family History (Parent hip fracture): YES Secondary Osteoporosis: Rheumatoid Arthritis: YES RISK FACTORS HISTORY OF: Family History of Osteoporosis: YES Active: YES Postmenopausal woman: AGE 47 MEDICATIONS: Thyroid Medications: YES Which medication: LEVOTHYROXINE How Long: SINCE AGE 16 Additional Medications: LEVOTHYROXINE,BLOOD PRESSURE MEDS Additional History: EXAM MEASUREMENTS: Bone mineral densitometry was performed using the [employer]. Bone mineral density as measured about the Lumbar spine is: ----- L1-L4(G/cm2): 1.084 T Score Values are as follows: ----- L2: -1.4 ----- L3: -0.8 ----- L4: -0.5 ----- L1-L4: -0.8 Bone mineral density has: INCREASED 2.1 % since study of: 2014 Bone mineral density about the R hip (g/cm2): 0.851 Bone mineral density about the L hip (g/cm2): 0.824 T Score values are as follows: -----R Neck: -1.3 -----L Neck: -1.5 -----R Total: -1.2 -----L Total: -1.7 Bone mineral density has: INCREASED 2.6 % since study of: 2014 IMPRESSION: Osteopenia (T Score between -2.5 and -1). There is slightly increased risk of fracture and the patient may be considered for treatment. Re-Screen 2-5 years. NOTE: T-SCORE=SD OF THE YOUNG ADULT MEAN.
== END | disposition home or self-care (01) ==
LOC: RADBDWWP 08:34
PROVIDERS: ATTEND Family Medicine
DX: M85.88 Other specified disorders of bone density and structure, other site (principal)
CPT/HCPCS: 77080

== ENCOUNTER → 2018-12-06 | Outpatient (CLI) | payer MEDICARE ==
--- NOTE | 2018-12-06 12:26 | CTL ---
EXAMINATION TYPE: CT Low Dose Lung DATE OF EXAM ORDERED: 12/06/2018 COMPARISON: None HISTORY: Low Dose CT Lung Screening IV CONTRAST USED: None. SCREENING VISIT: First visit COMPARISON: None. TECHNIQUE: Low dose computed tomography scan was performed through the chest at 1 millimeter thick se ctions and reconstructed images in the coronal plane at [address] DIAGNOSTIC QUALITY: Poor FINDINGS: LUNG NODULES: Stable nodular density right lower lobe image 29 measuring 6 mm . No additional nodules identified. Scattered calcified granulomas. LUNGS: COPD: Severity: Mild Fibrosis: Severity:None Lymph nodes: None Other findings: None RIGHT PLEURAL SPACE: Effusion: None Calcification: None Thickening: None Pneumothorax: None LEFT PLEURAL SPACE: Effusion: None Calcification: None Thickening: None Pneumothorax: None HEART: Heart Size: Mildly enlarged Coronary calcification: Mild Pericardial effusion: None OTHER FINDINGS: Upper abdomen: Moderate hiatal hernia. Bony thorax: Degenerative changes Supraclavicular region: No significant abnormalityOther: No significant abnormalityI IMPRESSION: 1. Stable lung RADS 2 benign with 6 mm right lower lobe pulmonary nodule. 2. Remote granulomatous disease. 3. Hiatal hernia. 4. COPD with moderate emphysema. FOLLOW UP CT CHEST RECOMMENDATION: Follow-up screening in one year CT LUNG RAD: LUNG RAD CATEGORY B9 I-RADS 2
== END | disposition home or self-care (01) ==
LOC: RADCTMAIN 11:13
PROVIDERS: ATTEND Internal Medicine Critical Care Medicine
DX: Z12.2 Encounter for screening for malignant neoplasm of respiratory organs (principal); R91.1 Solitary pulmonary nodule; K44.9 Diaphragmatic hernia without obstruction or gangrene; J43.9 Emphysema, unspecified; D71 Functional disorders of polymorphonuclear neutrophils

== ENCOUNTER → 2019-03-10 | Outpatient (CLI) | payer MEDICARE ==
--- NOTE | 2019-03-11 14:17 | MM ---
Reason for exam: screening (asymptomatic). Last mammogram was performed 1 year and 1 month ago. History: Patient is postmenopausal. Family history of breast cancer in aunt at age 50 and premenopausal breast cancer in sister at age 36. Cancelled Left US Needle Biopsy of the left breast, April 14, 2007. Benign excisional biopsy of the right breast, 1989. Took hormonal contraceptives for 4 years beginning at age 19. Taking other hormone for 9 years beginning at age 48. Physical Findings: A clinical breast exam by your physician is recommended on an annual basis and results should be correlated with mammographic findings. MG 3D Screening Mammo W/Cad Bilateral CC and MLO view(s) were taken. Prior study comparison: February 04, 2018, bilateral MG 3d screening mammo w/cad. January 22, 2017, bilateral MG 3d screening mammo w/cad. There are scattered fibroglandular densities. There are benign appearing round oval circumscribed small masses similar back to 2015. Benign appearing bilateral calcifications. No suspicious abnormality. No significant changes when compared with prior studies. ASSESSMENT: Benign, BI-RAD 2 RECOMMENDATION: Routine screening mammogram of both breasts in 1 year.
== END | disposition home or self-care (01) ==
LOC: RADMAMWWP 10:21
PROVIDERS: ATTEND Family Medicine
DX: Z12.31 Encounter for screening mammogram for malignant neoplasm of breast (principal)
CPT/HCPCS: 77063; 77067

== ENCOUNTER → 2019-12-14 | Outpatient (CLI) | payer MEDICARE ==
--- NOTE | 2019-12-14 11:55 | CTL ---
EXAMINATION TYPE: CT Low Dose Lung DATE OF EXAM ORDERED: 12/14/2019 HISTORY: Long-term tobacco use. Lung cancer screening CT DLP: 83.[address] CTDI: 2.4 mGy Automated exposure control for dose reduction was used. SCREENING VISIT: Third study after baseline COMPARISON: Prior study December 06, 2018 and older studies. TECHNIQUE: Low dose computed tomography scan was performed through the chest at 1 mm thick sections a nd reconstructed images in the coronal plane at [address] DIAGNOSTIC QUALITY: Satisfactory FINDINGS: LUNG NODULES: Present, detailed below: Stable 8 mm central right lower lobe nodule axial image 176 unchanged from 2016 study. A few scattered tiny nodules in the right lower lung redemonstrated for reference 5 x 2 mm nodule ruth r fissure axial image 183 stable from 2016. No new or enlarging greater than 4 mm nodules. LUNGS: COPD: Severity: Moderate Fibrosis: Severity: Mild biapical and bibasilar Lymph nodes: No greater than 1 cm Other findings: None. RIGHT PLEURAL SPACE: Effusion: None Calcification: None Thickening: None Pneumothorax: None LEFT PLEURAL SPACE: Effusion: None Calcification: None Thickening: None Pneumothorax: None HEART: Heart Size: Upper limits of normal Coronary calcification: Mild Pericardial effusion: None OTHER FINDINGS: Upper abdomen: Cholecystectomy clips are noted. Stable moderate size hiatal hernia. Bony thorax: Mild multilevel spurring redemonstrated. Supraclavicular region: None. Other: Ascending aorta measures up to 3.7 cm diameter image 129 unchanged from prior studies. IMPRESSION: Stable 8 mm right lower lobe nodule from 2016 presumed benign. No new or enlarging greate r than [address] CHEST RECOMMENDATION: Consider annual low-dose lung screening CT CT LUNG RAD: Lung-Rad 2 Benign Appearance or Behavior
== END | disposition home or self-care (01) ==
LOC: RADCTMAIN 11:06
PROVIDERS: ATTEND Internal Medicine Critical Care Medicine
DX: Z12.2 Encounter for screening for malignant neoplasm of respiratory organs (principal); Z87.891 Personal history of nicotine dependence

== ENCOUNTER → 2020-03-16 | Outpatient (CLI) | payer MEDICARE ==
--- NOTE | 2020-03-20 12:20 | MM ---
Reason for exam: screening (asymptomatic). Last mammogram was performed 1 year ago. History: Patient is postmenopausal. Family history of breast cancer in aunt at age 50 and premenopausal breast cancer in sister at age 36. Cancelled Left US Needle Biopsy of the left breast, April 14, 2007. Benign excisional biopsy of the right breast, 1989. Took hormonal contraceptives for 4 years beginning at age 19. Taking other hormone for 9 years beginning at age 48. Physical Findings: A clinical breast exam by your physician is recommended on an annual basis and results should be correlated with mammographic findings. MG 3D Screening Mammo W/Cad Bilateral CC and MLO view(s) were taken. Prior study comparison: March 10, 2019, bilateral MG 3d screening mammo w/cad. February 04, 2018, bilateral MG 3d screening mammo w/cad. There are scattered fibroglandular densities. There is chronic nodularity bilaterally in a benign pattern. Benign oil cyst calcifications. No significant changes when compared with prior studies. ASSESSMENT: Benign, BI-RAD 2 RECOMMENDATION: Routine screening mammogram of both breasts in 1 year.
== END | disposition home or self-care (01) ==
LOC: RADMAMWWP 14:49
PROVIDERS: ATTEND Family Medicine
DX: Z12.31 Encounter for screening mammogram for malignant neoplasm of breast (principal)
CPT/HCPCS: 77063; 77067

== ENCOUNTER → 2021-01-21 | Outpatient (CLI) | payer MEDICARE ==
--- NOTE | 2021-01-21 07:29 | US ---
EXAMINATION TYPE: US abdomen limited DATE OF EXAM: 01/21/2021 COMPARISON: NONE CLINICAL HISTORY: R10.811 RUQ Abd tenderness, R74.01 Elevated. EXAM MEASUREMENTS: Liver Length: 12.3 cm Gallbladder Wall: Surgically absent CBD: 0.8 cm Right Kidney: 9.9 x 4.2 x 5.0 cm Pancreas: visualized portions wnl Liver: difficult to penetrate Gallbladder: Surgically absent CBD: measures 0.8 cm Right Kidney: small exophytic lower pole cyst measures 1.2 x 1.0 x 1.1 cm IMPRESSION: 1. Probable hepatic steatosis. 2. Exophytic cyst right kidney.
== END | disposition home or self-care (01) ==
LOC: RADUSWWP 06:56
PROVIDERS: ATTEND Family Medicine
DX: N28.1 Cyst of kidney, acquired (principal)
CPT/HCPCS: 76705

== ENCOUNTER → 2021-02-20 | Outpatient (CLI) | payer MEDICARE ==
--- NOTE | 2021-02-20 14:39 | CT ---
EXAMINATION TYPE: CT angio chest DATE OF EXAM: 02/20/2021 COMPARISON: 10/05/2016 HISTORY: thoracic aneurysm CT DLP: 897 mGycm CONTRAST: CTA thoracic aorta with 3-D reconstruction is performed and without and with IV Contrast, patient inj ected with 100 mL of Isovue 370. Contrast CTA of the thoracic aorta was performed from the lung apex through the upper abdomen. 3D re construction imaging obtained at a separate workstation. CT Chest: THORACIC AORTA: No evidence for thoracic aortic aneurysm. Mild atheromatous changes seen. There is n o evidence for dissection or periaortic collection. LUNGS: The lungs are clear and free of infiltrate or atelectasis. No pulmonary nodule or mass is det ected. No pleural effusion or CT evidence of interstitial lung disease. MEDIASTINUM: No evidence for mediastinal hematoma. The heart is not enlarged. No evidence for med iastinal mass or adenopathy. HILAR STRUCTURES: No evidence for mass. No hilar adenopathy is appreciated. OTHER: Small fixed hiatal hernia noted. IMPRESSION- 1. No evidence for thoracic aortic aneurysm.
== END | disposition home or self-care (01) ==
LOC: RADCTMAIN 11:33
DX: I10 Essential (primary) hypertension (principal)
CPT/HCPCS: 82565; 84520; 71275; 36415; Q9967

== ENCOUNTER → 2021-03-25 | Outpatient (CLI) | payer MEDICARE ==
--- NOTE | 2021-03-27 10:38 | MM ---
Reason for exam: screening (asymptomatic). Last mammogram was performed 1 year ago. History: Patient is postmenopausal. Family history of breast cancer in aunt at age 50 and premenopausal breast cancer in sister at age 36. Cancelled Left US Needle Biopsy of the left breast, April 14, 2007. Benign excisional biopsy of the right breast, 1989. Took hormonal contraceptives for 4 years beginning at age 19. Taking other hormone for 9 years beginning at age 48. Physical Findings: A clinical breast exam by your physician is recommended on an annual basis and results should be correlated with mammographic findings. MG 3D Screening Mammo W/Cad Bilateral CC and MLO view(s) were taken. Prior study comparison: March 16, 2020, bilateral MG 3d screening mammo w/cad. March 10, 2019, bilateral MG 3d screening mammo w/cad. There are scattered fibroglandular densities. There is chronic nodularity in the right breast. Benign oil cyst calcifications. Left 2-3 o'clock some increasing punctate calcifications adjacent to an oil cyst could be developing dystrophic calcifications. Magnification views recommended. ASSESSMENT: Incomplete: need additional imaging evaluation, BI-RAD 0 RECOMMENDATION: Special view mammogram of the left breast. (magnification) [facility] will attempt to contact patient to return for supplemental views.
== END | disposition home or self-care (01) ==
LOC: RADMAMWWP 12:48
PROVIDERS: ATTEND Family Medicine
DX: Z12.31 Encounter for screening mammogram for malignant neoplasm of breast (principal)
CPT/HCPCS: 77063; 77067

== ENCOUNTER → 2021-10-08 | Outpatient (CLI) | payer MEDICARE ==
--- NOTE | 2021-10-08 14:56 | MM ---
Reason for Exam: Follow-up at short interval from prior study. Last screening mammogram was performed 7 month(s) ago. Patient History: Menarche at age 11. First Full-Term at age 18. Postmenopausal. Hormonal Contraceptives for 4 years from age 19 until age 23. 1989, Benign Excisional Biopsy on the right side. 04/14/2007, Cancelled Left US Needle Biopsy on the left side. Maternal aunt had breast cancer, age 50. Sister had breast cancer, age 36. Risk Values: Elizabeth 5 year model risk: 4.0%. NCI Lifetime model risk: 9.6%. Prior Study Comparison: 03/16/2020 Bilateral Screening Mammogram, [facility]. 03/25/2021 Bilateral Screening Mammogram, [facility]. 04/03/2021 Left Diagnostic Mammogram, [facility]. Tissue Density: Left: The breast tissue is heterogeneously dense. This may lower the sensitivity of mammography. Findings: Analyzed By CAD. No suspicious mass or distortion. Benign calcifications present. Overall Assessment: Benign, BI-RAD 2 Management: Screening Mammogram of both breasts in 6 months. A clinical breast exam by your physician is recommended on an annual basis and results should be correlated with mammographic findings. This exam should not preclude additional follow-up of suspicious palpable abnormalities. Results were given to the patient verbally at the time of exam. Electronically signed and approved by: Claude Saravia M.D. Radiologis
== END | disposition home or self-care (01) ==
LOC: RADMAMWWP 13:28
PROVIDERS: ATTEND Family Medicine
DX: R92.8 Other abnormal and inconclusive findings on diagnostic imaging of breast (principal)
CPT/HCPCS: 77065; G0279; 77061

== ENCOUNTER → 2022-06-05 | Day surgery (SDC) | payer MEDICARE ==
[2022-06-05 08:16] VITALS: RESP 16
--- NOTE | 2022-06-05 08:58 | P.PCN ---
Date of Procedure: 06/05/22 Preoperative Diagnosis: Mammographic abnormality right breast Postoperative Diagnosis: Same Procedure(s) Performed: Stereotactic core biopsy right breast Anesthesia: local Surgeon: Margie Greco Pathology: other (Breast tissue with microcalcifications noted in radiograph of specimen) Condition: stable Disposition: same day Indications for Procedure: Mammographic abnormality midportion right breast Operative Findings: Radiograph of specimen removed reveals microcalcifications of concern Description of Procedure: The patient was seen and examined and her mammograms were reviewed with radiology. There appeared to be a area of nodularity in the right breast in the midportion with microcalcifications of concern. Recommendation was for stero- tactic core biopsy of the right breast. The patient understood the risk and benefits and wished to proceed. The patient was taken to the stereotactic core biopsy room. She was positioned prone on the lo-rad table. A carburetor specialist film was obtained. A CC from below approach was utilized. The lesion of concern was identified. The lesion was targeted. The breast was prepped using Betadine. 25 mL of 1% lidocaine were used to anesthetize the area of concern. A 9-gauge vacuum-assisted core rotating biopsy needle was driven to the correct coordinates. A prefire film was obtained. The needle was noted to be in the correct location. The needle was fired. Post fire film was obtained. The needle was noted to be in the correct location. 14 core biopsy specimens were obtained. Radiograph of the specimen revealed the microcalcifications of concern were present. A secure ruth ann Top-Hat clip was placed. This was noted to be in the correct location. The patient will follow- up with Dr. Moralez next week. The specimen was sent to pathology.
[2022-06-05 09:01] VITALS: BP 158/90; PULSE 71; TEMP 98.1
--- NOTE | 2022-06-05 11:54 | MM ---
Addendum entered and electronically signed by Margie Greco MD 06/05/22 10:48: Procedure clip placement x-rays reviewed with Dr. Granados. Although it appears that the lesion was targeted and calcifications within the specimen there is question is whether the clip may have migrated and the lesion was adequately sampled. We will await pathology results. Depending on the results further recommendation to follow. Original Note: Date of Procedure: 06/05/22 Preoperative Diagnosis: Mammographic abnormality right breast Postoperative Diagnosis: Same Procedure(s) Performed: Stereotactic core biopsy right breast Anesthesia: local Surgeon: Margie Greco Pathology: other (Breast tissue with microcalcifications noted in radiograph of specimen) Condition: stable Disposition: same day Indications for Procedure: Mammographic abnormality midportion right breast Operative Findings: Radiograph of specimen removed reveals microcalcifications of concern Description of Procedure: The patient was seen and examined and her mammograms were reviewed with radiology. There appeared to be a area of nodularity in the right breast in the midportion with microcalcifications of concern. Recommendation was for stero- tactic core biopsy of the right breast. The patient understood the risk and benefits and wished to proceed. The patient was taken to the stereotactic core biopsy room. She was positioned prone on the lo-rad table. A litigation attorney film was obtained. A CC from below approach was utilized. The lesion of concern was identified. The lesion was targeted. The breast was prepped using Betadine. 25 mL of 1% lidocaine were used to anesthetize the area of concern. A 9-gauge vacuum-assisted core rotating biopsy needle was driven to the correct coordinates. A prefire film was obtained. The needle was noted to be in the correct location. The needle was fired. Post fire film was obtained. The needle was noted to be in the correct location. 14 core biopsy specimens were obtained. Radiograph of the specimen revealed the microcalcifications of concern were present. A secure ruth ann Top-Hat clip was placed. This was noted to be in the correct location. The patient will follow- up with Dr. Moralez next week. The specimen was sent to pathology. [facility]
== END ==
LOC: RADMAMWWP 07:22
PROVIDERS: ATTEND Surgery
DX: D24.1 Benign neoplasm of right breast (principal); N60.91 Unspecified benign mammary dysplasia of right breast
CPT/HCPCS: 88305; 88342; 88341; 19081; A4648; J2001

== ENCOUNTER → 2022-06-12 | Outpatient (CLI) | payer MEDICARE ==
[2022-06-12 10:42] VITALS: BP 148/87; PULSE 98; RESP 17; TEMP 97.8
--- NOTE | 2022-06-12 11:20 | P.PN ---
Subjective Progress Note Date: 06/12/22 Principal diagnosis: LCIS/ALH right breast Juliette is a 71 year old white female seen in consultation for Natalie Newman regarding a mammographic abnormality in the right breast. Program a 2622 which revealed an area of concern in the right breast. This was followed by a diagnostic and a right breast mammogram and ultrasound of the right breast and 2822. The patient noted to have a 0.8 cm oval avascular hypoechoic area with possible punctate foci corresponding to an area on mammogram revealing some microcalcifications in a 13 mm oval circumscribed lesion. The recommendation was for stereotactic core biopsy. This was not feeling Lungs masses or nodules of concern in either breast. She had an open right breast biopsy in the past about 25 years ago, no cancer. She denies any recent trauma or infection in the breast. She is not complaining of any nipple dischar ge or skin changes. 06-12-22 She underwent a stero biopsy of the right breast on 06-05-22. Her pathology revealed a fibroadenoma with LCIS/ALH. There was concern if the area of concern was adequately sampled. She developed bruising and tenderness after the biopsy. Radiograph was reviewed in person with Dr. Francisco and there is some question that the clip may have migrated her that the actual area may not of been adequately sampled. Caffeine: 8 cups coffee/day nicotine: none, stopped smoking at 57 used to smoke 2 PPD for 40 years chocolate: daily BCP: 5 years stopped in her 20's Family History: father: brain tumor maternal aunts: colon cancer maternal aunt: breast and lung cancer maternal uncle: Esophageal cancer maternal uncle: stomach cancer Hormonal History: menarche: 14 , breat fed: no, age at first : 17 menopause: 47 hormones: none at menopause Surgical History: right breast biopsy bilateral cataract gallbladder thyroid no cancer bilateral knee replacement Blepharoplasty bilateral balloon sinuoplasty Dental implants [place] tumor on bilateral parotid Medical History: systemic lupus arthritis HTN diabetes diet controlled COPD Social History: 16: As above Alcohol:rare drugs: none - Constitutional Constitutional: Denies chills, Denies fever - EENT Eyes: bilateral as per HPI Ears: deny: decreased hearing, tinnitus Ears, nose, mouth and throat: Denies headache, Denies sore throat - Breasts Breasts: bilateral: as per HPI - Cardiovascular Cardiovascular: Denies chest pain, Denies shortness of breath - Respiratory Respiratory: Denies cough - Gastrointestinal Gastrointestinal: Reports as per HPI - Genitourinary (Female) Genitourinary: Denies dysuria, Denies hematuria - Menstruation Menstruation: Reports as per HPI - Musculoskeletal Musculoskeletal: Reports as per HPI - Integumentary Integumentary: Reports rash - Neurological Neurological: Denies numbness, Denies weakness - Psychiatric Psychiatric: Denies anxiety, Denies depression - Endocrine Comment: diabetic Endocrine: Denies fatigue, Denies weight change - Hematologic/Lymphatic Comment: none - Allergic/Immunologic Allergic/Immunologic: Reports as per HPI, Reports seasonal allergies Past Medical History Past Medical History: Diabetes Mellitus, Hyperlipidemia, Hypertension, Osteoarth ritis (OA), Thyroid Disorder Additional Past Medical History / Comment(s): Hashimotos disease; chroinc sinusitis, systemic lupus. 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 Several dental implants Past Anesthesia/Blood Transfusion Reactions: No Reported Reaction Past Psychological History: No Psychological Hx Reported Smoking Status: Former smoker Past Alcohol Use History: Rare Additional Past Alcohol Use History / Comment(s): smoked 2 ppd for about 40 yrs; quit 2008 Past Drug Use History: None Reported - Past Family History Father History Unknown: Yes Family Medical History: Cancer, Myocardial Infarction ([place]) Mother History Unknown: Yes Family Medical History: Hypertension Medications and Allergies Home Medications Medication Instructions Recorded Confirmed Type Levothyroxine Sodium [Synthroid] 200 mcg PO DAILY 08/15/14 06/05/22 History Lisinopril-Hctz 20-25 mg 1 tab PO BID 08/15/14 06/05/22 History [Zestoretic 20-25] Multivit-Min/FA/Lycopene/Lut 1 tab PO DAILY 08/15/14 06/05/22 History [Centrum Silver Tablet] amLODIPine BESYLATE [Amlodipine 2.5 mg PO DAILY 08/15/14 06/05/22 History Besylate] Azelastine HCl [Astepro] 1 spray EA NOSTRIL BID PRN 12/16/15 06/05/22 History Etodolac [Lodine] 400 mg PO DAILY 10/05/16 06/05/22 History Gabapentin [Neurontin] 900 mg PO TID 10/05/16 06/05/22 History Metoprolol Succinate (ER) [Toprol 50 mg PO DAILY 10/05/16 06/05/22 History XL] tiZANidine HCL [Zanaflex] 4 mg PO HS 10/05/16 06/05/22 History Cholecalciferol [Vitamin D3 (25 25 mcg PO DAILY 08/10/20 06/05/22 History Mcg = 1000 Iu)] Dicyclomine [Bentyl] 10 mg PO BID 08/10/20 06/05/22 History Pantoprazole Sodium [Protonix] 40 mg PO BID 08/10/20 06/05/22 History Sertraline [Zoloft] 50 mg PO DAILY 08/10/20 06/05/22 History Rosuvastatin [Crestor] 10 mg PO DAILY 05/08/22 06/05/22 History sitaGLIPtin [Januvia] 50 mg PO DAILY 05/08/22 06/05/22 History Allergies Allergy/AdvReac Type Severity Reaction Status Date / Time adhesive Allergy Rash/Hives Verified 06/05/22 07:31 Penicillins Allergy Rash/Hives Verified 06/05/22 07:31 Tetracyclines Allergy Rash/Hives Verified 06/05/22 07:31 Objective - Vital Signs Vital signs: Vital Signs Temp 97.8 F 06/12/22 10:40 Pulse 98 06/12/22 10:40 Resp 17 06/12/22 10:40 BP 148/87 06/12/22 10:40 Pulse Ox 97 06/12/22 10:40 FiO2 Intake & Output 06/11/22 06/12/22 06/12/22 18:59 06:59 18:59 Weight 93.894 kg - Constitutional General appearance: Present: cooperative - EENT Eyes: Present: EOMI ENT: Present: hearing grossly normal - Neck Neck: Present: normal ROM - Respiratory Respiratory: bilateral: CTA - Cardiovascular Rhythm: regular Heart sounds: normal: S1, S2 - Gastrointestinal General gastrointestinal: Present: soft - Integumentary Integumentary: Present: normal turgor - Musculoskeletal Musculoskeletal: Present: gait normal - Psychiatric Psychiatric: Present: A&O x's 3, appropriate affect, intact judgment & insight - Additional findings Additional findings: Breast Exam: BRA: 44D inspection: Grade 3 ptosis bilateral Palpation: Right breast: Multi-positional exam fibrocystic changes no dominant masses or nodules of concern Right axilla: No adenopathy of concern Left breast: Multi-positional exam fibrocystic changes no dominant masses or nodules of concern Left axilla: No adenopathy of concern Assessment and Plan Assessment: Impression: systemic lupus arthritis HTN diabetes diet controlled Mammographic abnormality right breast COPD stero biopsy right breast LCIS/ALH, fibroadenoma ; question as to whether the original area of concern was adequately sampled Plan: After discussion with Dr. Francisco would recommend needle localization of the area of the clip in the right breast as well as needle localization of the area of microcalcifications originally seen and lumpectomy. We would also do onco- plastic tissue transfer. Clearance form Dr. Orr Risk and benefits of procedure discussed with the patient. Risks include but are not limited to bleeding, infection, reaction to the anesthetic. Cc: Dr. Orr
== END ==
LOC: WWCWWP 10:15
PROVIDERS: ATTEND Surgery
DX: D24.1 Benign neoplasm of right breast (principal); R92.8 Other abnormal and inconclusive findings on diagnostic imaging of breast; J44.9 Chronic obstructive pulmonary disease, unspecified; E11.36 Type 2 diabetes mellitus with diabetic cataract; E78.5 Hyperlipidemia, unspecified; I10 Essential (primary) hypertension; M19.90 Unspecified osteoarthritis, unspecified site; Z79.84 Long term (current) use of oral hypoglycemic drugs; Z88.0 Allergy status to penicillin; Z91.048 Other nonmedicinal substance allergy status; Z88.1 Allergy status to other antibiotic agents; Z87.891 Personal history of nicotine dependence

== ENCOUNTER → 2022-07-17 | Outpatient (CLI) | payer MEDICARE ==
[2022-07-17 15:42] VITALS: BP 127/82; PULSE 68; RESP 17; TEMP 97.3
--- NOTE | 2022-07-17 16:06 | P.PN ---
Subjective Progress Note Date: 07/17/22 LCIS/ALH right breast Juliette is a 71 year old white female seen in consultation for Natalie Newman regarding a mammographic abnormality in the right breast. Study on 2622 which revealed an area of concern in the right breast. This was followed by a diagnostic and a right breast mammogram and ultrasound of the right breast on 2822. The patient noted to have a 0.8 cm oval avascular hypoechoic area with possible punctate foci corresponding to an area on mammogram revealing some microcalcifications in a 13 mm oval circumscribed lesion. The recommendation was for stereotactic core biopsy. The patient did not feel any lumps, masses, or nodules of concern in either breast. She had an open right breast biopsy in the past about 25 years ago, no cancer. She denies any recent trauma or infection in the breast. She is not complaining of any nipple discharge or skin changes She underwent a stero biopsy of the right breast on 06-05-22. Her pathology revealed a fibroadenoma with LCIS/ALH. There was concern if the area of concern was adequately sampled. She developed bruising and tenderness after the biopsy. Radiograph was reviewed in person with Dr. Francisco and there is some question that the clip may have migrated her that the actual area may not of been adequately sampled. He recommended needle localization of the clip and the microcalcifications for resection in the OR. Caffeine: 8 cups coffee/day nicotine: none, stopped smoking at 57 used to smoke 2 PPD for 40 years chocolate: daily BCP: 5 years stopped in her 20's Family History: father: brain tumor maternal aunts: colon cancer maternal aunt: breast and lung cancer maternal uncle: Esophageal cancer maternal uncle: stomach cancer Hormonal History: menarche: 14 , breat fed: no, age at first : 17 menopause: 47 hormones: none at menopause Surgical History: right breast biopsy bilateral cataract gallbladder thyroid no cancer bilateral knee replacement Blepharoplasty bilateral balloon sinuoplasty Dental implants [place] tumor on bilateral parotid Medical History: systemic lupus arthritis HTN diabetes diet controlled COPD Social History: 16: As above Alcohol:rare drugs: none - Constitutional Constitutional: Denies chills, Denies fever - EENT Eyes: bilateral as per HPI Ears: deny: decreased hearing, tinnitus Ears, nose, mouth and throat: Denies headache, Denies sore throat - Breasts Breasts: bilateral: as per HPI - Cardiovascular Cardiovascular: Denies chest pain, Denies shortness of breath - Respiratory Respiratory: Denies cough - Gastrointestinal Gastrointestinal: Reports as per HPI - Genitourinary (Female) Genitourinary: Denies dysuria, Denies hematuria - Menstruation Menstruation: Reports as per HPI - Musculoskeletal Musculoskeletal: Reports as per HPI - Integumentary Integumentary: Reports rash - Neurological Neurological: Denies numbness, Denies weakness - Psychiatric Psychiatric: Denies anxiety, Denies depression - Endocrine Comment: diabetic Endocrine: Denies fatigue, Denies weight change - Hematologic/Lymphatic Comment: none - Allergic/Immunologic Allergic/Immunologic: Reports as per HPI, Reports seasonal allergies Past Medical History Past Medical History: Diabetes Mellitus, Hyperlipidemia, Hypertension, Osteoarthritis (OA), Thyroid Disorder Additional Past Medical History / Comment(s): Hashimotos disease; chroinc sinusitis, systemic lupus. 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 Several dental implants Past Anesthesia/Blood Transfusion Reactions: No Reported Reaction Past Psychological History: No Psychological Hx Reported Smoking Status: Former smoker Past Alcohol Use History: Rare Additional Past Alcohol Use History / Comment(s): smoked 2 ppd for about 40 yrs; quit 2008 Past Drug Use History: None Reported - Past Family History Father History Unknown: Yes Family Medical History: Cancer, Myocardial Infarction ([place]) Mother History Unknown: Yes Family Medical History: Hypertension Medications and Allergies Home Medications Medication Instructions Recorded Confirmed Type Levothyroxine Sodium [Synthroid] 200 mcg PO DAILY 08/15/14 06/05/22 History Lisinopril-Hctz 20-25 mg 1 tab PO BID 08/15/14 06/05/22 History [Zestoretic 20-25] Multivit-Min/FA/Lycopene/Lut 1 tab PO DAILY 08/15/14 06/05/22 History [Centrum Silver Tablet] amLODIPine BESYLATE [Amlodipine 2.5 mg PO DAILY 08/15/14 06/05/22 History Besylate] Azelastine HCl [Astepro] 1 spray EA NOSTRIL BID PRN 12/16/15 06/05/22 History Etodolac [Lodine] 400 mg PO DAILY 10/05/16 06/05/22 History Gabapentin [Neurontin] 900 mg PO TID 10/05/16 06/05/22 History Metoprolol Succinate (ER) [Toprol 50 mg PO DAILY 10/05/16 06/05/22 History XL] tiZANidine HCL [Zanaflex] 4 mg PO HS 10/05/16 06/05/22 History Cholecalciferol [Vitamin D3 (25 25 mcg PO DAILY 08/10/20 06/05/22 History Mcg = 1000 Iu)] Dicyclomine [Bentyl] 10 mg PO BID 08/10/20 06/05/22 History Pantoprazole Sodium [Protonix] 40 mg PO BID 08/10/20 06/05/22 History Sertraline [Zoloft] 50 mg PO DAILY 08/10/20 06/05/22 History Rosuvastatin [Crestor] 10 mg PO DAILY 05/08/22 06/05/22 History sitaGLIPtin [Januvia] 50 mg PO DAILY 05/08/22 06/05/22 History Allergies Allergy/AdvReac Type Severity Reaction Status Date / Time adhesive Allergy Rash/Hives Verified 06/05/22 07:31 Penicillins Allergy Rash/Hives Verified 06/05/22 07:31 Tetracyclines Allergy Rash/Hives Verified 06/05/22 07:31 Objective - Vital Signs Vital signs: Vital Signs Temp 97.3 F L 07/17/22 15:40 Pulse 68 07/17/22 15:40 Resp 17 07/17/22 15:40 BP 127/82 07/17/22 15:40 Pulse Ox 100 07/17/22 15:40 FiO2 Intake & Output 07/16/22 07/17/22 07/17/22 18:59 06:59 18:59 Weight 93.894 kg - Constitutional General appearance: Present: cooperative - EENT Eyes: Present: EOMI ENT: Present: hearing grossly normal - Neck Neck: Present: normal ROM - Respiratory Respiratory: bilateral: CTA - Cardiovascular Rhythm: regular Heart sounds: normal: S1, S2 - Gastrointestinal General gastrointestinal: Present: soft - Integumentary Integumentary: Present: normal turgor - Musculoskeletal Musculoskeletal: Present: gait normal - Psychiatric Psychiatric: Present: A&O x's 3, appropriate affect, intact judgment & insight - Additional findings Additional findings: Breast Exam: BRA: 44D inspection: Grade 3 ptosis bilateral Palpation: Right breast: Multi-positional exam fibrocystic changes no dominant masses or nodules of concern Right axilla: No adenopathy of concern Left breast: Multi-positional exam fibrocystic changes no dominant masses or nodules of concern Left axilla: No adenopathy of concern Assessment and Plan Assessment: Impression: systemic lupus arthritis HTN diabetes diet controlled Mammographic abnormality right breast COPD stero biopsy right breast LCIS/ALH, fibroadenoma ; question as to whether the original area of concern was adequately sampled Plan: After discussion with Dr. Francisco would recommend needle localization of the area of the clip in the right breast as well as needle localization of the area of microcalcifications in the right breast and resection. No mastopexy incision. We would also do onco- plastic tissue transfer. Clearance form Dr. Orr Risk and benefits of procedure discussed with the patient. Risks include but are not limited to bleeding, infection, reaction to the anesthetic. Cc: Dr. Orr
== END ==
LOC: WWCWWP 15:32
PROVIDERS: ATTEND Surgery
DX: R92.8 Other abnormal and inconclusive findings on diagnostic imaging of breast (principal); M19.90 Unspecified osteoarthritis, unspecified site; E06.3 Autoimmune thyroiditis; E11.36 Type 2 diabetes mellitus with diabetic cataract; E78.5 Hyperlipidemia, unspecified; I10 Essential (primary) hypertension; J44.9 Chronic obstructive pulmonary disease, unspecified; M32.9 Systemic lupus erythematosus, unspecified; N60.91 Unspecified benign mammary dysplasia of right breast; Z79.84 Long term (current) use of oral hypoglycemic drugs; Z80.0 Family history of malignant neoplasm of digestive organs; Z80.1 Family history of malignant neoplasm of trachea, bronchus and lung; Z82.49 Family history of ischemic heart disease and other diseases of the circulatory system; Z87.891 Personal history of nicotine dependence; Z88.0 Allergy status to penicillin; Z90.49 Acquired absence of other specified parts of digestive tract; Z88.6 Allergy status to analgesic agent; Z91.048 Other nonmedicinal substance allergy status; Z79.890 Hormone replacement therapy; Z79.899 Other long term (current) drug therapy; Z79.51 Long term (current) use of inhaled steroids; Z80.3 Family history of malignant neoplasm of breast

== ENCOUNTER 2022-08-05 07:44 | Day surgery (SDC) | payer MEDICARE ==
[2022-08-01 09:32] VITALS: BMI 33.0
[~2022-08-05 07:44] MED LIST changes: +DEXAMETHASONE SOD PHOSPHATE 4 MG/ML 1 ML VIAL IV ONE; +HEPARIN SODIUM,PORCINE/PF 5,000 UNIT/0.5 ML SYRINGE SQ PRN; +HYDROmorphone 0.5 MG/0.5 ML SYRINGE IVP PRN; +LIDOCAINE 1% (10MG/ML) FOR IV START INTRADERMA PRN; -LIDOCAINE 1% 20 ML VIAL (10MG/ML) FOR IV START INTRADERMA PRN; +MIDAZOLAM 2 MG/2 ML VIAL IV PRN; +ONDANSETRON 4 MG/2 ML VIAL IVP ONE; +Pre Op ABX Message 1 EACH MISC MISCELLANE ONE
[2022-08-05 08:43] LABS: Glucose,Whole Blood 115 mg/dL (70-110)
[2022-08-05] MEDS ORDERED: ALPRAZolam 0.25 MG TAB ONE (08:52)
[2022-08-05] MEDS ORDERED: LIDOCAINE 1% (10MG/ML) FOR IV START SQ ONE (10:02)
[2022-08-05] MEDS ORDERED: ePHEDrine 50 MG/ML 1 ML VIAL ONE (11:13)
[2022-08-05] MEDS ORDERED: PROPOFOL 10 MG/ML 20 ML VIAL IV ONE (11:13)
[2022-08-05] MEDS ORDERED: MIDAZOLAM 2 MG/2 ML VIAL ONE (11:13)
[2022-08-05] MEDS ORDERED: LIDOCAINE 2% INJ 20 MG/ML (2 ML VIAL) ONE (11:13)
[2022-08-05] MEDS ORDERED: fentaNYL (PF) 50 MCG/ML 2 ML AMP ONE (11:13)
[2022-08-05] MEDS ORDERED: SUCCINYLCHOLINE CHLORIDE 200 MG/10 ML VIAL IV ONE (11:13)
[2022-08-05] MEDS ORDERED: LIDOCAINE 4% LTA KIT (4 ML) TOPICAL ONE (11:13)
--- NOTE | 2022-08-05 12:05 | P.OP ---
Date of Procedure: 08/05/22 Preoperative Diagnosis: Calcifications of concern right breast/clip possible migration revealed atypical lobular hyperplasia Postoperative Diagnosis: Same Procedure(s) Performed: needle localization with excision of clip and microcalcifications Anesthesia: MICHAEL Surgeon: Margie Greco Estimated Blood Loss (ml): 5 IV fluids (ml): 600 Pathology: other (breast tissue with calcs and clip) Condition: stable Disposition: same day Indications for Procedure: Calcifications of concern, possible discordant biopsy Operative Findings: Fibrofatty breast tissue, area of concern noted on radiograph of specimen Description of Procedure: The patient was seen first in the radiology suite where needle localization of the area of concern was performed. Patient was then brought to the operative suite. The right breast was prepped and draped in a sterile fashion following induction of anesthesia. An incision was made and carried down to the hook of the needle. Surrounding tissue was excised. The testis specimen was painted for orientation. Radiograph revealed the clip and microcalcifications within the specimen. The wound was well irrigated. Titanium clips were placed. The deep tissues were closed using 3-0 Vicryl suture. The skin was closed using 4-0 Monocryl. The patient tolerated the procedure in stable condition. All instrument and sponge counts were correct at the end of the case.
[2022-08-05 12:25] VITALS: TEMP 98.8
[2022-08-05 13:01] VITALS: RESP 16
[2022-08-05] MEDS ORDERED: HYDROcodone/APAP 5-325MG 1 EACH TAB ONE (13:30)
[2022-08-05] MEDS ORDERED: HYDROcodone/APAP 5-325MG 1 EACH TAB PO ONE (13:31)
[2022-08-05 13:45] VITALS: BP 144/85; PULSE 77
== END 2022-08-05 14:33 | disposition home or self-care (01) ==
LOC: OR 07:44
PROVIDERS: ATTEND Surgery
DX: N60.91 Unspecified benign mammary dysplasia of right breast (principal); I10 Essential (primary) hypertension; E78.5 Hyperlipidemia, unspecified; J44.9 Chronic obstructive pulmonary disease, unspecified; M19.90 Unspecified osteoarthritis, unspecified site; E11.9 Type 2 diabetes mellitus without complications; E07.9 Disorder of thyroid, unspecified; Z87.891 Personal history of nicotine dependence; Z88.0 Allergy status to penicillin; Z88.8 Allergy status to other drugs, medicaments and biological substances
CPT/HCPCS: 76098; 19281; J2250; J0330; J1100; J2405; J3010; J2704; J1644; J2001; 88307

== ENCOUNTER → 2022-08-14 | Outpatient (CLI) | payer MEDICARE ==
[2022-08-14 12:28] VITALS: BP 170/88; PULSE 73; RESP 18; TEMP 97.9
--- NOTE | 2022-08-14 12:53 | P.PN ---
Progress Note - Text Progress Note Date: 08/14/22 Juliette is a 71-year-old white female status post right breast needle localization and excisional biopsy in 5923. Her pathology revealed a fibroadenoma as well as focal atypical lobular hyperplasia. At this time she is doing well postoperatively. Examination: Lungs: Clear Heart: Regular rate and rhythm Incision: Clean and dry Impression: Atypical lobular hyperplasia Plan: Close surveillance, repeat right breast mammogram in 6 months We have discussed chemoprevention and at this time she has declined. We have also discussed meeting with medical oncology to discuss chemoprevention and at this time she has declined. Cc: Dr. Orr
== END ==
LOC: WWCWWP 12:05
PROVIDERS: ATTEND Surgery
DX: Z85.3 Personal history of malignant neoplasm of breast (principal); Z91.048 Other nonmedicinal substance allergy status; Z88.6 Allergy status to analgesic agent; Z88.0 Allergy status to penicillin; Z87.891 Personal history of nicotine dependence

== ENCOUNTER → 2022-08-29 | Outpatient (CLI) | payer MEDICARE ==
--- NOTE | 2022-08-29 14:30 | XR ---
EXAMINATION TYPE: XR shoulder complete LT DATE OF EXAM: 08/29/2022 CLINICAL HISTORY: Pain. Strain injury last week TECHNIQUE: Three views of the left shoulder are obtained. COMPARISON: None. FINDINGS: There is no acute fracture/dislocation evident in the left shoulder. Moderate narrowing at the acromioclavicular joint. Distal common morphology unremarkable. Moderate to severe narrowing of the glenohumeral joint . The visualized ribs are intact and unremarkable. IMPRESSION: As above.
== END | disposition home or self-care (01) ==
LOC: RADXRYALE 14:14
PROVIDERS: ATTEND Family Medicine
DX: M25.512 Pain in left shoulder (principal)

== ENCOUNTER → 2023-02-06 | Outpatient (CLI) | payer MEDICARE ==
--- NOTE | 2023-02-06 10:59 | MM ---
Reason for Exam: Follow-up at short interval from prior study. Last screening mammogram was performed 9 month(s) ago. Patient History: Menarche at age 11. First Full-Term at age 18. Postmenopausal. Hormonal Contraceptives for 4 years from age 19 until age 23. 08/05/2022, Benign MG pre op needle loc RT on the right side. 06/05/2022, Benign MG stereo VAD BX RT on the right side. 1989, Benign Excisional Biopsy on the right side. 04/14/2007, Cancelled Left US Needle Biopsy on the left side. Maternal aunt had breast cancer, age 50. Maternal cousin had breast cancer at or over age 50. Sister had breast cancer, age 36. Risk Values: Elizabeth 5 year model risk: 5.0%. NCI Lifetime model risk: 11.3%. Prior Study Comparison: 10/08/2021 Left MG 3D diag mammo w/cad LT, [facility]. 05/05/2022 Bilateral MG 3D screening mammo w/cad, [facility]. 05/07/2022 Right MG 3D work up w/cad RT, [facility]. Tissue Density: Right: There are scattered fibroglandular densities. Findings: Analyzed By CAD. Post surgical changes of the right breast. No new suspicious mass. Benign calcifications identified. No suspicious group of calcifications. Overall Assessment: Benign, BI-RAD 2 Management: Screening Mammogram of both breasts in 6 months. A clinical breast exam by your physician is recommended on an annual basis and results should be correlated with mammographic findings. This exam should not preclude additional follow-up of suspicious palpable abnormalities. Results were given to the patient verbally at the time of exam. Note on Elizabeth scores and lifetime risk: 1. A Elizabeth score greater than 3% is considered moderate risk. If this is the case, consider specialist referral to assess eligibility for a risk reducing agent. If overall lifetime risk for the development of breast cancer is 20% or higher, the patient may qualify for future screening with alternating mammogram and breast MRI. Electronically signed and approved by: Colby Grady D.O.
== END | disposition home or self-care (01) ==
LOC: RADMAMWWP 10:33
PROVIDERS: ATTEND Surgery
DX: R92.321 Mammographic fibroglandular density, right breast (principal); Z78.0 Asymptomatic menopausal state; Z80.3 Family history of malignant neoplasm of breast
CPT/HCPCS: 77065; G0279; 77061

== ENCOUNTER → 2023-02-12 | Outpatient (CLI) | payer MEDICARE ==
[2023-02-12 12:39] VITALS: BP 179/104; PULSE 70; RESP 18; TEMP 97.9
--- NOTE | 2023-02-12 13:01 | P.PN ---
Subjective Progress Note Date: 02/12/23 LCIS/ALH right breast Juliette is a 72 year old white female seen in consultation for Natalie Newman regarding a mammographic abnormality in the right breast. Study on 2622 which revealed an area of concern in the right breast. This was followed by a diagnostic and a right breast mammogram and ultrasound of the right breast on 2822. The patient noted to have a 0.8 cm oval avascular hypoechoic area with possible punctate foci corresponding to an area on mammogram revealing some microcalcifications in a 13 mm oval circumscribed lesion. The recommendation was for stereotactic core biopsy. The patient did not feel any lumps, masses, or nodules of concern in either breast. She had an open right breast biopsy in the past about 25 years ago, no cancer. She denies any recent trauma or infection in the breast. She is not complaining of any nipple discharge or skin changes She underwent a stero biopsy of the right breast on 06-05-22. Her pathology revealed a fibroadenoma with LCIS/ALH. There was concern if the area of concern was adequately sampled. She developed bruising and tenderness after the biopsy. Radiograph was reviewed in person with Dr. Francisco and there is some question that the clip may have migrated her that the actual area may not of been adequately sampled. He recommended needle localization of the clip and the microcalcifications for resection in the OR. She underwent needle localization and excisional biopsy on 5922. Her pathology revealed a fibroadenoma as well as focal atypical lobular hyperplasia. Postoperatively she did well. She has had a right breast diagnostic mammogram on [id number] which is BIRADS 2. She is due for bilateral mammogram in 6 months. Chemo-prophylaxis was discussed and declined. Not complaining of any new lumps masses or nodules of concern in either breast. Elizabeth risk evaluation is 5% at 5 years NCI lifetime risk 11.3% Caffeine: 8 cups coffee/day nicotine: none, stopped smoking at 57 used to smoke 2 PPD for 40 years chocolate: daily BCP: 5 years stopped in her 20's Family History: father: brain tumor maternal aunts: colon cancer maternal aunt: breast and lung cancer maternal uncle: Esophageal cancer maternal uncle: stomach cancer Hormonal History: menarche: 14 , breat fed: no, age at first : 17 menopause: 47 hormones: none at menopause Surgical History: right breast biopsy bilateral cataract gallbladder thyroid no cancer bilateral knee replacement Blepharoplasty bilateral balloon sinuoplasty Dental implants [place] tumor on bilateral parotid Medical History: systemic lupus arthritis HTN diabetes diet controlled COPD Social History: 16: As above Alcohol:rare drugs: none - Constitutional Constitutional: Denies chills, Denies fever - EENT Eyes: bilateral as per HPI Ears: deny: decreased hearing, tinnitus Ears, nose, mouth and throat: Denies headache, Denies sore throat - Breasts Breasts: bilateral: as per HPI - Cardiovascular Cardiovascular: Denies chest pain, Denies shortness of breath - Respiratory Respiratory: Denies cough - Gastrointestinal Gastrointestinal: Reports as per HPI - Genitourinary (Female) Genitourinary: Denies dysuria, Denies hematuria - Menstruation Menstruation: Reports as per HPI - Musculoskeletal Musculoskeletal: Reports as per HPI - Integumentary Integumentary: Reports rash - Neurological Neurological: Denies numbness, Denies weakness - Psychiatric Psychiatric: Denies anxiety, Denies depression - Endocrine Comment: diabetic Endocrine: Denies fatigue, Denies weight change - Hematologic/Lymphatic Comment: none - Allergic/Immunologic Allergic/Immunologic: Reports as per HPI, Reports seasonal allergies Past Medical History Past Medical History: Diabetes Mellitus, Hyperlipidemia, Hypertension, Osteoarthritis (OA), Thyroid Disorder Additional Past Medical History / Comment(s): Hashimotos disease; chroinc sinusitis, systemic lupus. 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 Several dental implants Past Anesthesia/Blood Transfusion Reactions: No Reported Reaction Past Psychological History: No Psychological Hx Reported Smoking Status: Former smoker Past Alcohol Use History: Rare Additional Past Alcohol Use History / Comment(s): smoked 2 ppd for about 40 yrs; quit 2008 Past Drug Use History: None Reported - Past Family History Father History Unknown: Yes Family Medical History: Cancer, Myocardial Infarction ([place]) Mother History Unknown: Yes Family Medical History: Hypertension Medications and Allergies Home Medications Medication Instructions Recorded Confirmed Type Levothyroxine Sodium [Synthroid] 200 mcg PO DAILY 08/15/14 06/05/22 History Lisinopril-Hctz 20-25 mg 1 tab PO BID 08/15/14 06/05/22 History [Zestoretic 20-25] Multivit-Min/FA/Lycopene/Lut 1 tab PO DAILY 08/15/14 06/05/22 History [Centrum Silver Tablet] amLODIPine BESYLATE [Amlodipine 2.5 mg PO DAILY 08/15/14 06/05/22 History Besylate] Azelastine HCl [Astepro] 1 spray EA NOSTRIL BID PRN 12/16/15 06/05/22 History Etodolac [Lodine] 400 mg PO DAILY 10/05/16 06/05/22 History Gabapentin [Neurontin] 900 mg PO TID 10/05/16 06/05/22 History Metoprolol Succinate (ER) [Toprol 50 mg PO DAILY 10/05/16 06/05/22 History XL] tiZANidine HCL [Zanaflex] 4 mg PO HS 10/05/16 06/05/22 History Cholecalciferol [Vitamin D3 (25 25 mcg PO DAILY 08/10/20 06/05/22 History Mcg = 1000 Iu)] Dicyclomine [Bentyl] 10 mg PO BID 08/10/20 06/05/22 History Pantoprazole Sodium [Protonix] 40 mg PO BID 08/10/20 06/05/22 History Sertraline [Zoloft] 50 mg PO DAILY 08/10/20 06/05/22 History Rosuvastatin [Crestor] 10 mg PO DAILY 05/08/22 06/05/22 History sitaGLIPtin [Januvia] 50 mg PO DAILY 05/08/22 06/05/22 History Allergies Allergy/AdvReac Type Severity Reaction Status Date / Time adhesive Allergy Rash/Hives Verified 06/05/22 07:31 Penicillins Allergy Rash/Hives Verified 06/05/22 07:31 Tetracyclines Allergy Rash/Hives Verified 06/05/22 07:31 Objective - Vital Signs Vital signs: Vital Signs Temp 97.9 F 02/12/23 12:32 Pulse 70 02/12/23 12:32 Resp 18 02/12/23 12:32 BP 179/104 02/12/23 12:32 Pulse Ox 96 02/12/23 12:32 FiO2 Intake & Output 02/11/23 02/12/23 02/12/23 18:59 06:59 18:59 Weight 92.986 kg - Constitutional General appearance: Present: cooperative - EENT Eyes: Present: EOMI ENT: Present: hearing grossly normal - Neck Neck: Present: normal ROM - Respiratory Respiratory: bilateral: CTA - Cardiovascular Heart sounds: normal: S1, S2 - Integumentary Integumentary: Present: normal turgor - Musculoskeletal Musculoskeletal: Present: gait normal - Psychiatric Psychiatric: Present: A&O x's 3, appropriate affect, intact judgment & insight - Additional findings Additional findings: Breast Exam: BRA: 44D inspection: Grade 3 ptosis bilateral, well healed scar right breast Palpation: Right breast: Multi-positional exam fibrocystic changes no dominant masses or nodules of concern Right axilla: No adenopathy of concern Left breast: Multi-positional exam fibrocystic changes no dominant masses or nodules of concern Left axilla: No adenopathy of concern Assessment and Plan Assessment: Impression: systemic lupus arthritis HTN diabetes diet controlled Mammographic abnormality right breast COPD stero biopsy right breast LCIS/ALH, fibroadenoma ; question as to whether the original area of concern was adequately sampled Right breast diagnostic mammogram [id number] benign BIRADS 2 Plan: Bilateral mammogram in 6 months with physician exam at that time We have again discussed chemoprophylaxis and at this time the patient has declined Cc:
== END ==
LOC: WWCWWP 11:36
PROVIDERS: ATTEND Surgery
DX: Z12.31 Encounter for screening mammogram for malignant neoplasm of breast (principal); M32.9 Systemic lupus erythematosus, unspecified; I10 Essential (primary) hypertension; J44.9 Chronic obstructive pulmonary disease, unspecified; N60.91 Unspecified benign mammary dysplasia of right breast; M19.90 Unspecified osteoarthritis, unspecified site; E06.3 Autoimmune thyroiditis; E78.5 Hyperlipidemia, unspecified; E11.36 Type 2 diabetes mellitus with diabetic cataract; D24.1 Benign neoplasm of right breast; Z87.891 Personal history of nicotine dependence; Z79.84 Long term (current) use of oral hypoglycemic drugs; Z79.890 Hormone replacement therapy; Z88.0 Allergy status to penicillin; Z90.49 Acquired absence of other specified parts of digestive tract; Z96.653 Presence of artificial knee joint, bilateral; Z86.39 Personal history of other endocrine, nutritional and metabolic disease; J32.9 Chronic sinusitis, unspecified; Z91.048 Other nonmedicinal substance allergy status; Z88.5 Allergy status to narcotic agent; Z79.899 Other long term (current) drug therapy

== ENCOUNTER → 2023-08-03 | Outpatient (CLI) | payer MEDICARE ==
--- NOTE | 2023-08-04 18:53 | MM ---
Reason for Exam: Screening (asymptomatic). Last mammogram was performed 1 year(s) and 3 month(s) ago. Patient History: Menarche at age 11. First Full-Term at age 18. Postmenopausal. Hormonal Contraceptives for 4 years from age 19 until age 23. 08/05/2022, Benign MG pre op needle loc RT on the right side. 06/05/2022, Benign MG stereo VAD BX RT on the right side. 1989, Benign Excisional Biopsy on the right side. 04/14/2007, Cancelled Left US Needle Biopsy on the left side. Maternal aunt had breast cancer, age 50. Maternal cousin had breast cancer at or over age 50. Sister had breast cancer, age 36. Risk Values: Elizabeth 5 year model risk: 5.0%. NCI Lifetime model risk: 11.3%. Prior Study Comparison: 05/05/2022 Bilateral MG 3D screening mammo w/cad, [facility]. 05/07/2022 Right MG 3D work up w/cad RT, [facility]. 02/06/2023 Right MG 3D diag mammo w/cad RT, [facility]. Tissue Density: There are scattered areas of fibroglandular density. Findings: Analyzed By CAD. Chronic nodularity in the left breast. Postexcisional changes right breast. Unchanged scattered round calcifications bilaterally including punctate calcifications left upper outer quadrant. There is no suspicious group of microcalcifications or new suspicious mass in either breast. Overall Assessment: Benign, BI-RAD 2 Management: Screening Mammogram of both breasts in 1 year. See note below in regards to patient's increased 5 year Elizabeth score. Patient should continue monthly self-breast exams. A clinical breast exam by your physician is recommended on an annual basis. This exam should not preclude additional follow-up of suspicious palpable abnormalities. Note on Elizabeth scores and lifetime risk: 1. A Elizabeth score greater than 3% is considered moderate risk. If this is the case, consider specialist referral to assess eligibility for a risk reducing agent. 2. If overall lifetime risk for the development of breast cancer is 20% or higher, the patient may qualify for future screening with alternating mammogram and breast MRI. Electronically signed and approved by: Miguel Granados M.D. Radiologist
== END | disposition home or self-care (01) ==
LOC: RADMAMWWP 09:16
PROVIDERS: ATTEND Surgery
DX: Z12.31 Encounter for screening mammogram for malignant neoplasm of breast (principal); Z78.0 Asymptomatic menopausal state; Z80.3 Family history of malignant neoplasm of breast
CPT/HCPCS: 77063; 77067

== ENCOUNTER → 2023-08-13 | Outpatient (CLI) | payer MEDICARE ==
--- NOTE | 2023-08-13 10:50 | P.PN ---
Subjective Progress Note Date: 08/13/23 Principal diagnosis: LCIS/ALH right breast 08-13-23 LCIS/ALH right breast Juliette is a 72 year old white female seen in consultation for Natalie Newman regarding a mammographic abnormality in the right breast. Study on 2622 revealed an area of concern in the right breast. This was followed by a diagnostic right breast mammogram and ultrasound of the right breast on 2822. The patient noted to have a 0.8 cm oval avascular hypoechoic area with possible punctate foci corresponding to an area on mammogram revealing some microcalcifications in a 13 mm oval circumscribed lesion. The recommendation was for stereotactic core biopsy. The patient did not feel any lumps, masses, or nodules of concern in either breast. She had an open right breast biopsy in the past about 25 years ago, no cancer. She denied any recent trauma or infection in the breast. She was not complaining of any nipple discharge or skin changes She underwent a stero biopsy of the right breast on 06-05-22. Her pathology revealed a fibroadenoma with LCIS/ALH. There was concern if the area of concern was adequately sampled. She developed bruising and tenderness after the biopsy. Radiograph was reviewed in person with Dr. Francisco and there was some question that the clip may have migrated her that the actual area may not of been adequately sampled. He recommended needle localization of the clip and the microcalcifications for resection in the OR. She underwent needle localization and excisional biopsy on 5922. Her pathology revealed a fibroadenoma as well as focal atypical lobular hyperplasia. Postoperatively she did well. She has had a right breast diagnostic mammogram on [id number] which is BIRADS 2. She is due for bilateral mammogram in 6 months. Chemo-prophylaxis was discussed and declined. Not complaining of any new lumps masses or nodules of concern in either breast. Bilateral mammogram on 08-03-23 BIRAD 2 declined chemoprophylaxis Elizabeth risk evaluation is 5% at 5 years NCI lifetime risk 11.3% Caffeine: 8 cups coffee/day nicotine: none, stopped smoking at 57 used to smoke 2 PPD for 40 years chocolate: daily BCP: 5 years stopped in her 20's Family History: father: brain tumor maternal aunts: colon cancer maternal aunt: breast and lung cancer maternal uncle: Esophageal cancer maternal uncle: stomach cancer Hormonal History: menarche: 14 , breat fed: no, age at first : 17 menopause: 47 hormones: none at menopause Surgical History: right breast biopsy bilateral cataract gallbladder thyroid no cancer bilateral knee replacement Blepharoplasty bilateral balloon sinuoplasty Dental implants [place] tumor on bilateral parotid Medical History: systemic lupus arthritis HTN diabetes diet controlled COPD Social History: 16: As above Alcohol:rare drugs: none - Constitutional Constitutional: Denies chills, Denies fever - EENT Eyes: bilateral as per HPI Ears: deny: decreased hearing, tinnitus Ears, nose, mouth and throat: Denies headache, Denies sore throat - Breasts Breasts: bilateral: as per HPI - Cardiovascular Cardiovascular: Denies chest pain, Denies shortness of breath - Respiratory Respiratory: Denies cough - Gastrointestinal Gastrointestinal: Reports as per HPI - Genitourinary (Female) Genitourinary: Denies dysuria, Denies hematuria - Menstruation Menstruation: Reports as per HPI - Musculoskeletal Musculoskeletal: Reports as per HPI - Integumentary Integumentary: Reports rash - Neurological Neurological: Denies numbness, Denies weakness - Psychiatric Psychiatric: Denies anxiety, Denies depression - Endocrine Comment: diabetic Endocrine: Denies fatigue, Denies weight change - Hematologic/Lymphatic Comment: none - Allergic/Immunologic Allergic/Immunologic: Reports as per HPI, Reports seasonal allergies Past Medical History Past Medical History: Diabetes Mellitus, Hyperlipidemia, Hypertension, Osteoarthritis (OA), Thyroid Disorder Additional Past Medical History / Comment(s): Hashimotos disease; chroinc sinusitis, systemic lupus. 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 Several dental implants Past Anesthesia/Blood Transfusion Reactions: No Reported Reaction Past Psychological History: No Psychological Hx Reported Smoking Status: Former smoker Past Alcohol Use History: Rare Additional Past Alcohol Use History / Comment(s): smoked 2 ppd for about 40 yrs; quit 2008 Past Drug Use History: None Reported - Past Family History Father History Unknown: Yes Family Medical History: Cancer, Myocardial Infarction ([place]) Mother History Unknown: Yes Family Medical History: Hypertension Medications and Allergies Home Medications Medication Instructions Recorded Confirmed Type Levothyroxine Sodium [Synthroid] 200 mcg PO DAILY 08/15/14 06/05/22 History Lisinopril-Hctz 20-25 mg 1 tab PO BID 08/15/14 06/05/22 History [Zestoretic 20-25] Multivit-Min/FA/Lycopene/Lut 1 tab PO DAILY 08/15/14 06/05/22 History [Centrum Silver Tablet] amLODIPine BESYLATE [Amlodipine 2.5 mg PO DAILY 08/15/14 06/05/22 History Besylate] Azelastine HCl [Astepro] 1 spray EA NOSTRIL BID PRN 12/16/15 06/05/22 History Etodolac [Lodine] 400 mg PO DAILY 10/05/16 06/05/22 History Gabapentin [Neurontin] 900 mg PO TID 10/05/16 06/05/22 History Metoprolol Succinate (ER) [Toprol 50 mg PO DAILY 10/05/16 06/05/22 History XL] tiZANidine HCL [Zanaflex] 4 mg PO HS 10/05/16 06/05/22 History Cholecalciferol [Vitamin D3 (25 25 mcg PO DAILY 08/10/20 06/05/22 History Mcg = 1000 Iu)] Dicyclomine [Bentyl] 10 mg PO BID 08/10/20 06/05/22 History Pantoprazole Sodium [Protonix] 40 mg PO BID 08/10/20 06/05/22 History Sertraline [Zoloft] 50 mg PO DAILY 08/10/20 06/05/22 History Rosuvastatin [Crestor] 10 mg PO DAILY 05/08/22 06/05/22 History sitaGLIPtin [Januvia] 50 mg PO DAILY 05/08/22 06/05/22 History Allergies Allergy/AdvReac Type Severity Reaction Status Date / Time adhesive Allergy Rash/Hives Verified 06/05/22 07:31 Penicillins Allergy Rash/Hives Verified 06/05/22 07:31 Tetracyclines Allergy Rash/Hives Verified 06/05/22 07:31 Objective - Vital Signs Vital signs: Vital Signs Temp 97.9 F 08/13/23 10:06 Pulse 61 08/13/23 10:06 Resp 17 08/13/23 10:06 BP 133/86 08/13/23 10:06 Pulse Ox 97 08/13/23 10:06 FiO2 Intake & Output 08/12/23 08/13/23 08/13/23 18:59 06:59 18:59 Weight 68.039 kg - Constitutional General appearance: Present: cooperative - EENT Eyes: Present: EOMI ENT: Present: hearing grossly normal - Neck Neck: Present: normal ROM - Respiratory Respiratory: bilateral: CTA - Cardiovascular Heart sounds: normal: S1, S2 - Gastrointestinal General gastrointestinal: Present: soft - Integumentary Integumentary: Present: normal turgor - Musculoskeletal Musculoskeletal: Present: gait normal - Psychiatric Psychiatric: Present: A&O x's 3, appropriate affect, intact judgment & insight - Additional findings Additional findings: Breast Exam: BRA: 44D inspection: Grade 3 ptosis bilateral, well healed scar right breast Palpation: Right breast: Multi-positional exam fibrocystic changes no dominant masses or nodules of concern Right axilla: No adenopathy of concern Left breast: Multi-positional exam fibrocystic changes no dominant masses or nodules of concern Left axilla: No adenopathy of concern Assessment and Plan Assessment: Impression: systemic lupus arthritis HTN diabetes diet controlled Mammographic abnormality right breast COPD stero biopsy right breast LCIS/ALH, fibroadenoma ; led to an open biopsy and resection benign Right breast diagnostic mammogram 08-03-23 BIRAD 2 Plan: Bilateral mammogram in 1 year with exam Patient to follow sooner any concerns We have again discussed chemoprophylaxis and at this time the patient has declined Cc:
[2023-08-13 11:12] VITALS: BP 184/90; PULSE 69; RESP 16; TEMP 98
== END ==
LOC: WWCWWP 09:46
PROVIDERS: ATTEND Surgery
DX: M19.90 Unspecified osteoarthritis, unspecified site (principal); I10 Essential (primary) hypertension; E78.5 Hyperlipidemia, unspecified; E11.36 Type 2 diabetes mellitus with diabetic cataract; E06.3 Autoimmune thyroiditis; J44.9 Chronic obstructive pulmonary disease, unspecified; M32.9 Systemic lupus erythematosus, unspecified; N60.91 Unspecified benign mammary dysplasia of right breast; Z79.84 Long term (current) use of oral hypoglycemic drugs; Z79.890 Hormone replacement therapy; Z87.891 Personal history of nicotine dependence; Z88.0 Allergy status to penicillin; Z91.048 Other nonmedicinal substance allergy status; Z88.1 Allergy status to other antibiotic agents; Z79.899 Other long term (current) drug therapy

== ENCOUNTER 2023-12-16 09:27 | Day surgery (SDC) | payer MEDICARE ==
[2023-12-15 11:56] VITALS: BMI 32.4
[~2023-12-16 09:27] MED LIST changes: -DEXAMETHASONE SOD PHOSPHATE 4 MG/ML 1 ML VIAL IV ONE; -HEPARIN SODIUM,PORCINE/PF 5,000 UNIT/0.5 ML SYRINGE SQ PRN; -HYDROmorphone 0.5 MG/0.5 ML SYRINGE IVP PRN; -LIDOCAINE 1% (10MG/ML) FOR IV START INTRADERMA PRN; -MIDAZOLAM 2 MG/2 ML VIAL IV PRN; -ONDANSETRON 4 MG/2 ML VIAL IVP ONE; -Pre Op ABX Message 1 EACH MISC MISCELLANE ONE
[2023-12-16] MEDS: IV FLUID CONTINUATION 1,000 ML IV ONE (09:52)
[2023-12-16 10:03] VITALS: TEMP 98.1
[2023-12-16 10:14] LABS: Glucose,Whole Blood 119 mg/dL (70-110)
[2023-12-16] MEDS ORDERED: PROPOFOL 10 MG/ML 20 ML VIAL IV ONE (10:22)
--- NOTE | 2023-12-16 10:45 | P.PCN ---
Date of Procedure: 12/16/23 Procedure(s) Performed: BRIEF HISTORY: Patient is a 73-year-old pleasant white female scheduled for an elective colonoscopy as a part of evaluation for history of colon polyps. Last colonoscopy was 5 years ago. PROCEDURE PERFORMED: Colonoscopy with snare polypectomy. PREOPERATIVE DIAGNOSIS: History of colon polyps. IV sedation per Anesthesia. PROCEDURE: After informed consent was obtained, the patient, was brought into the endoscopy unit. IV sedation was administered by Anesthesia under continuous monitoring. Digital rectal examination was normal. Initially the Olympus CF-160 flexible video colonoscope was then inserted in the rectum, gradually advanced into the cecum without any difficulty. Careful examination was performed as the scope was gradually being withdrawn. Ileocecal valve and the appendiceal orifice were visualized and appeared normal. Prep was excellent. Mucosa of the cecum, ascending colon, transverse colon, appeared normal. The descending colon there was a 7 mm sessile polyp removed by cold snare polypectomy. Rest of the descending colon, sigmoid colon, and rectum appeared normal. Rectum there was a 3 mm polyp that was removed by cold snare polypectomy. Moderate sigmoid diverticulosis seen. Retroflexion was performed in the rectum and no lesions were seen. The patient tolerated the procedure well. IMPRESSION: 7 mm descending colon polyp status post cold snare polypectomy 3 mm rectal polyp status post snare polypectomy Scattered sigmoid diverticulosis RECOMMENDATIONS: Findings of this examination were discussed with the patient as well as her family. She was advised to follow-up with the biopsy results. If the biopsy reveals adenoma she can have repeat colonoscopy in 5 years..
[2023-12-16 11:11] VITALS: BP 116/72; RESP 15
[2023-12-16 11:15] VITALS: PULSE 67
== END 2023-12-16 11:19 | disposition home or self-care (01) ==
LOC: ORWHC2ENDO 09:27
PROVIDERS: ATTEND Internal Medicine Gastroenterology
DX: Z12.11 Encounter for screening for malignant neoplasm of colon (principal); K57.30 Diverticulosis of large intestine without perforation or abscess without bleeding; K63.5 Polyp of colon; I10 Essential (primary) hypertension; J44.9 Chronic obstructive pulmonary disease, unspecified; E11.9 Type 2 diabetes mellitus without complications; E07.9 Disorder of thyroid, unspecified; F41.9 Anxiety disorder, unspecified; M32.9 Systemic lupus erythematosus, unspecified; M19.90 Unspecified osteoarthritis, unspecified site; I20.9 Angina pectoris, unspecified; Z86.010 Personal history of colon polyps; Z79.899 Other long term (current) drug therapy; Z90.49 Acquired absence of other specified parts of digestive tract; Z87.891 Personal history of nicotine dependence; Z88.0 Allergy status to penicillin; Z88.1 Allergy status to other antibiotic agents; Z88.8 Allergy status to other drugs, medicaments and biological substances; Z79.890 Hormone replacement therapy; Z79.84 Long term (current) use of oral hypoglycemic drugs
CPT/HCPCS: 88305; 45385; J2704

== ENCOUNTER → 2024-08-16 | Outpatient (CLI) | payer MEDICARE ==
--- NOTE | 2024-08-16 19:09 | MR ---
INDICATION: Patient age:Female; 73 years old; Reason for study: M54.50 LBP M51.362 LUM RGN M47.26 SPONDYLOSIS; PHH. COMPARISONS: CT abdomen and pelvis 12/16/2015. TECHNIQUE: Multi planar, multi sequence imaging was performed utilizing: T1-weighted, T2-weighted, a nd turbo inversion recovery imaging of the lumbar spine. The patient was not given contrast. FINDINGS: The lumbar vertebral bodies do have preserved heights and alignment. Multilevel disc bolivar ccation is present. T1/T2 hypointense subcentimeter lesion within L4 vertebral body likely representi ng a benign bone island. The conus medullaris and the distal spinal cord do appear unremarkable with regards to their signal intensity and morphology. Mild subcutaneous edema of the back. T12-L1: Minimal broad-based disc bulge. No significant central canal stenosis. Bilateral facet arthro andres. No significant neural foraminal stenosis. L1-L2: No significant disc pathology is identified. The spinal canal and neural foramen are patent. L2-L3: Minimal broad-based disc bulge. No significant central canal stenosis. Bilateral facet arthro andres. No significant neural foraminal stenosis. L3-L4: Minimal broad-based disc bulge. No significant central canal stenosis. Bilateral facet arthro andres. No significant neural foraminal stenosis. L4-L5: Eccentric left disc bulge extending into the lateral and foraminal zones. There is abutment of the exiting left L5 nerve root. Mild bilateral ligament flavum buckling. No significant central herb l stenosis. Bilateral facet arthropathy. The right neural foramen is patent. Moderate left neural for aminal stenosis. L5-S1: The intervertebral disc appears round on its contour posteriorly without significant mass eff ect upon the thecal sac. Facet joints are enlarged. Neural canals do remain patent. Other significant findings: Left renal T2 hyperintense thin-walled lesions with largest measuring up to 7.2 cm. Consistent with previously seen simple cysts. No follow-up recommended IMPRESSION: Mild multilevel disc degeneration with associated osteoarthritic changes as described above. Eccentri c left L4-L5 disc bulge with abutment of the exiting left S1 nerve root with moderate neural foramina l stenosis. [facility], , 08/16/2024 7:06 PM
== END | disposition home or self-care (01) ==
LOC: RADMRIMAIN 15:39
PROVIDERS: ATTEND Family Medicine
DX: M51.16 Intervertebral disc disorders with radiculopathy, lumbar region (principal); M47.26 Other spondylosis with radiculopathy, lumbar region; M99.73 Connective tissue and disc stenosis of intervertebral foramina of lumbar region
CPT/HCPCS: 72148

== ENCOUNTER → 2024-09-29 | Outpatient (CLI) | payer MEDICARE ==
--- NOTE | 2024-09-29 14:44 | MM ---
Reason for Exam: Screening (asymptomatic). Last mammogram was performed 1 year(s) and 2 month(s) ago. Patient History: Menarche at age 11. First Full-Term at age 18. Postmenopausal. Hormonal Contraceptives for 4 years from age 19 until age 23. 08/05/2022, Benign MG pre op needle loc RT on the right side. 06/05/2022, Benign MG stereo VAD BX RT on the right side. 1989, Benign Excisional Biopsy on the right side. 04/14/2007, Cancelled Left US Needle Biopsy on the left side. Maternal aunt had breast cancer, age 50. Maternal cousin had breast cancer at or over age 50. Sister had breast cancer, age 36. Risk Values: Elizabeth 5 year model risk: 5.0%. NCI Lifetime model risk: 10.6%. Prior Study Comparison: 05/07/2022 Right MG 3D work up w/cad RT, [facility]. 02/06/2023 Right MG 3D diag mammo w/cad RT, [facility]. 08/03/2023 Bilateral MG 3D screening mammo w/cad, [facility]. Tissue Density: There are scattered areas of fibroglandular density. Findings: Analyzed By CAD. Chronic nodularity on both sides. Scattered benign round and punctate calcifications redemonstrated. Postexcisional changes on the right with an early developing oil cyst at the surgical site. There is no suspicious group of microcalcifications or new suspicious mass in either breast. Overall Assessment: Benign, BI-RAD 2 Management: Screening Mammogram of both breasts in 1 year. See note below in regards to the patient's increased 5 year Elizabeth score. Patient should continue monthly self-breast exams. A clinical breast exam by your physician is recommended on an annual basis. This exam should not preclude additional follow-up of suspicious palpable abnormalities. Note on Elizabeth scores and lifetime risk: 1. A Elizabeth score greater than 3% is considered moderate risk. If this is the case, consider specialist referral to assess eligibility for a risk reducing agent. 2. If overall lifetime risk for the development of breast cancer is 20% or higher, the patient may qualify for future screening with alternating mammogram and breast MRI. [facility], , 09/29/2024 2:41 PM. Electronically signed and approved by: Miguel Granados M.D. Radiologist
== END | disposition home or self-care (01) ==
LOC: RADMAMWWP 14:10
PROVIDERS: ATTEND Surgery
DX: Z12.31 Encounter for screening mammogram for malignant neoplasm of breast (principal); R92.323 Mammographic fibroglandular density, bilateral breasts; Z78.0 Asymptomatic menopausal state; Z80.3 Family history of malignant neoplasm of breast; Z92.0 Personal history of contraception
CPT/HCPCS: 77063; 77067

== ENCOUNTER → 2024-10-06 | Outpatient (CLI) | payer MEDICARE ==
[2024-10-06 11:35] VITALS: BP 166/86; PULSE 71; RESP 18; TEMP 98.3
--- NOTE | 2024-10-06 11:46 | P.PN ---
Subjective Progress Note Date: 10/06/24 Principal diagnosis: high risk breast cancer 10-06-24 Principal diagnosis: LCIS/ALH right breast Juliette is a 74 year old white female seen initially in consultation for Natalie Newman regarding a mammographic abnormality in the right breast. Study on 2622 revealed an area of concern in the right breast. This was followed by a diagnostic right breast mammogram and ultrasound of the right breast on 2822. The patient noted to have a 0.8 cm oval avascular hypoechoic area with possible punctate foci corresponding to an area on mammogram revealing some microcalcifications in a 13 mm oval circumscribed lesion. The recommendation was for stereotactic core biopsy. The patient did not feel any lumps, masses, or nodules of concern in either breast. She had an open right breast biopsy in the past about 25 years ago, no cancer. She denied any recent trauma or infection in the breast. She was not complaining of any nipple discharge or skin changes She underwent a stero biopsy of the right breast on 06-05-22. Her pathology revealed a fibroadenoma with LCIS/ALH. There was concern if the area of concern was adequately sampled. She developed bruising and tenderness after the biopsy. Radiograph was reviewed in person with Dr. Francisco and there was some question that the clip may have migrated her that the actual area may not of been adequately sampled. He recommended needle localization of the clip and the microcalcifications for r esection in the OR. She underwent needle localization and excisional biopsy on 5922. Her pathology revealed a fibroadenoma as well as focal atypical lobular hyperplasia. Postoperatively she did well. She has had a right breast diagnostic mammogram on [id number] which is BIRADS 2. Bilateral mammogram 09 29 24 BI-RADS 2. Personally interpreted. Chemo-prophylaxis was discussed and declined. Not complaining of any new lumps masses or nodules of concern in either breast. Bilateral mammogram on 09-29-24 BIRAD 2 declined chemoprophylaxis Recently she has been receiving treatment for lower back disease, at this time it is physical therapy. However approximately a week ago the arch on her left foot fell and she became flat-footed causing pain. She was on a cruise when this happened. Elizabeth risk evaluation is 5% at 5 years NCI lifetime risk 10.6% Caffeine: 8 cups coffee/day nicotine: none, stopped smoking at 57 used to smoke 2 PPD for 40 years chocolate: daily BCP: 5 years stopped in her 20's Family History: father: brain tumor maternal aunts: colon cancer maternal aunt: breast and lung cancer maternal uncle: Esophageal cancer maternal uncle: stomach cancer Hormonal History: menarche: 14 , breat fed: no, age at first : 17 menopause: 47 hormones: none at menopause Surgical History: right breast biopsy bilateral cataract gallbladder thyroid no cancer bilateral knee replacement Blepharoplasty bilateral balloon sinuoplasty Dental implants [place] tumor on bilateral parotid Medical History: systemic lupus arthritis HTN diabetes diet controlled COPD Lumbar back pain and sciatica-like pain Recent left arch of her foot fell and she became flat-footed on that side Social History: nicotine: As above Alcohol:rare drugs: none - Constitutional Constitutional: Denies chills, Denies fever - EENT Eyes: bilateral as per HPI Ears: deny: decreased hearing, tinnitus Ears, nose, mouth and throat: Denies headache, Denies sore throat - Breasts Breasts: bilateral: as per HPI - Cardiovascular Cardiovascular: Denies chest pain, Denies shortness of breath - Respiratory Respiratory: Denies cough - Gastrointestinal Gastrointestinal: Reports as per HPI - Genitourinary (Female) Genitourinary: Denies dysuria, Denies hematuria - Menstruation Menstruation: Reports as per HPI - Musculoskeletal Musculoskeletal: Reports as per HPI - Integumentary Integumentary: Reports rash - Neurological Neurological: Denies numbness, Denies weakness - Psychiatric Psychiatric: Denies anxiety, Denies depression - Endocrine Comment: diabetic Endocrine: Denies fatigue, Denies weight change - Hematologic/Lymphatic Comment: none - Allergic/Immunologic Allergic/Immunologic: Reports as per HPI, Reports seasonal allergies Past Medical History Past Medical History: Diabetes Mellitus, Hyperlipidemia, Hypertension, Osteoarthritis (OA), Thyroid Disorder Additional Past Medical History / Comment(s): Hashimotos disease; chroinc sinusitis, systemic lupus. 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 Several dental implants Past Anesthesia/Blood Transfusion Reactions: No Reported Reaction Past Psychological History: No Psychological Hx Reported Smoking Status: Former smoker Past Alcohol Use History: Rare Additional Past Alcohol Use History / Comment(s): smoked 2 ppd for about 40 yrs; quit 2008 Past Drug Use History: None Reported - Past Family History Father History Unknown: Yes Family Medical History: Cancer, Myocardial Infarction ([place]) Mother History Unknown: Yes Family Medical History: Hypertension Medications and Allergies Home Medications Medication Instructions Recorded Confirmed Type Levothyroxine Sodium [Synthroid] 200 mcg PO DAILY 08/15/14 06/05/22 History Lisinopril-Hctz 20-25 mg 1 tab PO BID 08/15/14 06/05/22 History [Zestoretic 20-25] Multivit-Min/FA/Lycopene/Lut 1 tab PO DAILY 08/15/14 06/05/22 History [Centrum Silver Tablet] amLODIPine BESYLATE [Amlodipine 2.5 mg PO DAILY 08/15/14 06/05/22 History Besylate] Azelastine HCl [Astepro] 1 spray EA NOSTRIL BID PRN 12/16/15 06/05/22 History Etodolac [Lodine] 400 mg PO DAILY 10/05/16 06/05/22 History Gabapentin [Neurontin] 900 mg PO TID 10/05/16 06/05/22 History Metoprolol Succinate (ER) [Toprol 50 mg PO DAILY 10/05/16 06/05/22 History XL] tiZANidine HCL [Zanaflex] 4 mg PO HS 10/05/16 06/05/22 History Cholecalciferol [Vitamin D3 (25 25 mcg PO DAILY 08/10/20 06/05/22 History Mcg = 1000 Iu)] Dicyclomine [Bentyl] 10 mg PO BID 08/10/20 06/05/22 History Pantoprazole Sodium [Protonix] 40 mg PO BID 08/10/20 06/05/22 History Sertraline [Zoloft] 50 mg PO DAILY 08/10/20 06/05/22 History Rosuvastatin [Crestor] 10 mg PO DAILY 05/08/22 06/05/22 History sitaGLIPtin [Januvia] 50 mg PO DAILY 05/08/22 06/05/22 History Allergies Allergy/AdvReac Type Severity Reaction Status Date / Time adhesive Allergy Rash/Hives Verified 06/05/22 07:31 Penicillins Allergy Rash/Hives Verified 06/05/22 07:31 Tetracyclines Allergy Rash/Hives Verified 06/05/22 07:31 Objective - Vital Signs Vital signs: Intake & Output 10/05/24 10/06/24 10/06/24 18:59 06:59 18:59 Weight 90.718 kg - Constitutional General appearance: Present: cooperative - EENT Eyes: Present: EOMI ENT: Present: hearing grossly normal - Neck Neck: Present: normal ROM - Respiratory Respiratory: bilateral: CTA - Cardiovascular Rhythm: regular Heart sounds: normal: S1, S2 - Integumentary Integumentary: Present: normal turgor - Musculoskeletal Musculoskeletal: Present: gait normal - Psychiatric Psychiatric: Present: A&O x's 3, appropriate affect, intact judgment & insight - Additional findings Additional findings: Breast Exam: BRA: 44D inspection: Grade 3 ptosis bilateral, well healed scar right breast Palpation: Right breast: Multi-positional exam fibrocystic changes no dominant masses or nodules of concern Right axilla: No adenopathy of concern Left breast: Multi-positional exam fibrocystic changes no dominant masses or nodules of concern Left axilla: No adenopathy of concern Assessment and Plan Assessment: Impression: systemic lupus arthritis HTN diabetes diet controlled COPD stero biopsy right breast LCIS/ALH, fibroadenoma ; led to an open biopsy and resection benign bilateral mammogram 09-29-24 BIRAD 2 Plan: Bilateral mammogram in 1 year September 2025 with exam Patient to follow sooner any concerns We have again discussed chemoprophylaxis and at this time the patient has declined Cc:
== END ==
LOC: WWCWWP 11:24
PROVIDERS: ATTEND Surgery
DX: Z01.419 Encounter for gynecological examination (general) (routine) without abnormal findings (principal); I10 Essential (primary) hypertension; E11.9 Type 2 diabetes mellitus without complications; J44.9 Chronic obstructive pulmonary disease, unspecified; D24.1 Benign neoplasm of right breast; N60.91 Unspecified benign mammary dysplasia of right breast; M19.90 Unspecified osteoarthritis, unspecified site; M32.9 Systemic lupus erythematosus, unspecified; Z88.0 Allergy status to penicillin; Z91.048 Other nonmedicinal substance allergy status; Z88.1 Allergy status to other antibiotic agents; Z87.891 Personal history of nicotine dependence